=== PATIENT | female | born 1975 | race Caucasian/White ===

== ENCOUNTER 2016-09-25 08:52 | Inpatient (IN) | payer OTHER ==
[2016-09-25 09:37] VITALS: BMI 28.3
--- NOTE | 2016-09-25 09:43 | PDOC ---
History of Present Illness <Medardo De La Vega - Last Filed: 09/25/16 14:41> - General History Source: Patient Exam Limitations: No Limitations - History of Present Illness Initial Comments: 09/25/16 16:44 The patient is a 41 year old female with a significant past medical history of kidney stones who presents to the ED with complaints of abdominal pain for 2 days. The patient reports an onset of sharp constant epigastric pain with radiation to her lower back pain on Wednesday night. She reports worsening symptoms and developed vomiting, diarrhea, dysuria, and a subjective fever yesterday evening. She reports multiple episodes of vomiting productive of yellow sputum with slight traces of blood and yellow watery stool. The patient also notes slight shortness of breath secondary to her abdominal pain. She reports taking advil with slight relief of present symptoms. She states her symptoms does not feel similar to her history of kidney stones. Patient states her daughter has similar symptoms at home. Denies any recent changes in medication. Denies recent travel. Denies chest pain or palpitations. Denies frequency, urgency or hematuria. Denies hematochezia. Denies any other symptoms. Surgical hx: Gallbladder removal Social hx: The patient lives at home with family. 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 <Brandon Traylor - Last Filed: 09/25/16 16:45> - General Chief Complaint: Pain, Acute Stated Complaint: ABD PAIN, VOMITING Time Seen by Provider: 09/25/16 09:35 Past History - Past Medical History Disorders: Yes (KIDNEY STONES) - Surgical History Cholecystectomy: Yes - Psycho/Social/Smoking Cessation Hx Anxiety: No Suicidal Ideation: No Smoking Status: No Smoking History: Never smoked Have you smoked in the past 12 months: No Number of Cigarettes Smoked Daily: 0 Hx Alcohol Use: No Drug/Substance Use Hx: No Substance Use Type: None <Medardo De La Vega - Last Filed: 09/25/16 14:41> <Brandon Traylor - Last Filed: 09/25/16 16:45> - Past Medical History Allergies/Adverse Reactions: Allergies Allergy/AdvReac Type Severity Reaction Status Date / Time No Known Drug Allergies Allergy Verified 09/25/16 09:19 Home Medications: Ambulatory Orders NK [No Known Home Medication] 09/25/16 Review of Systems - Review of Systems Able to Perform ROS?: Yes Comments:: 09/25/16 16:44 CONSTITUTIONAL: + fever No reported: Diaphoresis, Generalized Weakness, Malaise, Loss of Appetite HEENT: No reported: Rhinorrhea, Nasal Congestion, Throat Pain, Throat Swelling, Difficulty Swallowing, Mouth Swelling, Ear Pain, Eye Pain, Visual Changes CARDIOVASCULAR: No reported: Chest Pain, Syncope, Palpitations, Irregular Heart Rate, Lightheadedness, Peripheral Edema RESPIRATORY: + slight shortness of breath No reported: Cough, SOB with Exertion, Orthopnea, Wheezing, Stridor, Hemoptysis GASTROINTESTINAL: + abdominal pain, nausea, vomiting, diarrhea No reported: Abdominal Distension,, Constipation, Melena, Hematochezia GENITOURINARY: + dysuria No reported: Frequency, Urgency, Hesitancy, Flank Pain, Genital Pain MUSCULOSKELETAL: No reported: Myalgia, Arthralgia, Joint Swelling, Back pain, Neck Pain SKIN: No reported: Rash, Itching, Pallor HEMEATOLOGIC/IMMUNOLOGIC: No reported: Easy Bleeding, Easy Bruising, Lymphadenopathy, Frequent infections ENDOCRINE: No reported: Unexplained Weight Gain, Unexplained Weight Loss, Heat Intolerance , Cold Intolerance NEUROLOGIC: No reported: Headache, Focal Weakness, Paresthesias, Vertigo, Lightheadedness, Unsteady Gait, Seizure, Mental Status Changes, Incontinence PSYCHIATRIC: No reported: Anxiety, Depression All Other Systems: Reviewed and Negative <Brandon Traylor - Last Filed: 09/25/16 16:45> *Physical Exam - Vital Signs Last Vital Signs Temp Pulse Resp BP Pulse Ox 98.5 F 74 16 106/62 99 09/25/16 09:19 09/25/16 09:19 09/25/16 09:19 09/25/16 09:19 09/25/16 09:19 <Medardo De La Vega - Last Filed: 09/25/16 14:41> - Vital Signs Last Vital Signs Temp Pulse Resp BP Pulse Ox 98.5 F 69 16 121/72 95 09/25/16 09:19 09/25/16 13:25 09/25/16 13:25 09/25/16 13:25 09/25/16 13:25 - Physical Exam Comments: 09/25/16 16:44 GENERAL: The patient is awake, alert, and fully oriented, Nontoxic - in no acute distress. HEAD: Normocephalic, atraumatic. EYES: extraocular movements intact, sclera anicteric, conjunctiva clear. ENT: Normal voice, Moist mucous membranes. NECK: Normal range of motion, supple LUNGS: Breath sounds equal, clear to auscultation bilaterally. No wheezes, no rhonchi, no rales. HEART: Regular rate and rhythm, without murmur, rub or gallop. ABDOMEN: + Diffuse tenderness in right lower quadrant as well as epigastric. Soft, normoactive bowel sounds. No guarding, no rebound.No CVA tenderness EXTREMITIES: Normal range of motion, no edema. No clubbing or cyanosis. No cords, erythema, or tenderness. NEUROLOGICAL: No facial assymetry, Normal speech, PSYCH: Normal mood, normal affect. SKIN: Warm, Dry, normal turgor, <Brandon Traylor - Last Filed: 09/25/16 16:45> Heart Score/ECG Review - ECG Impressions Comment:: 09/25/16 11:20 Twelve-lead EKG was performed and reviewed by me. There is normal sinus rhythm with a normal rate. Rate of 68 twi in lead III normal axis normal r wave progression <Medardo De La Vega - Last Filed: 09/25/16 14:41> ED Treatment Course - LABORATORY CBC & Chemistry Diagram: 09/25/16 10:10 09/25/16 10:18 <Medardo De La Vega - Last Filed: 09/25/16 14:41> - LABORATORY CBC & Chemistry Diagram: 09/25/16 10:10 09/25/16 10:18 - ADDITIONAL ORDERS Additional order review: Laboratory Results 09/25/16 09/25/16 09/25/16 11:29 11:29 10:18 INR Sodium 136 Potassium 3.8 Chloride 101 Carbon Dioxide 25 Anion Gap 10 BUN 10 Creatinine 0.7 D Creat Clearance w eGFR > 60 Random Glucose 120 H D Calcium 7.9 L Total Bilirubin 1.3 H D AST 248 H D ALT 194 H D Alkaline Phosphatase 87 Total Protein 6.8 Albumin 3.4 Lipase 738 H Urine Color Yellow Urine Appearance Clear Urine pH 6.0 Ur Specific [place] 1.009 Urine Protein Negative Urine Glucose (UA) Negative Urine Ketones Negative Urine Blood 2+ H Urine Nitrite Negative Urine Bilirubin Negative Urine Urobilinogen 2.0 e.u/dl H Ur Leukocyte Esterase Negative Urine RBC 6 Urine WBC 1 Ur Epithelial Cells Rare Urine Mucus Rare Urine HCG, Qual Negative 09/25/16 10:10 INR 1.12 Sodium Potassium Chloride Carbon Dioxide Anion Gap BUN Creatinine Creat Clearance w eGFR Random Glucose Calcium Total Bilirubin AST ALT Alkaline Phosphatase Total Protein Albumin Lipase Urine Color Urine Appearance Urine pH Ur Specific [place] Urine Protein Urine Glucose (UA) Urine Ketones Urine Blood Urine Nitrite Urine Bilirubin Urine Urobilinogen Ur Leukocyte Esterase Urine RBC Urine WBC Ur Epithelial Cells Urine Mucus Urine HCG, Qual 09/25/16 10:10 RBC 4.14 MCV 92.8 MCHC 34.1 RDW 14.3 MPV 9.2 Neutrophils % 93.3 H D Lymphocytes % 1.5 L D Monocytes % 4.9 Eosinophils % 0.0 D Basophils % 0.3 - RADIOLOGY Radiograph Interpretation: 09/25/16 14:02 US/LIVER US Impression: Common duct dilated to 7/6 mm. This could be related to the cholecystectomy but in light of the symptoms present one can consider MRCP. Otherwise normal right upper quadrant ultrasound post cholecystectomy. Clinical correlation advised. Reported by: Beto Garber - Medications Given in the ED: ED Medications Discontinued Medications Generic Name Dose Route Start Last Admin Trade Name Freq PRN Reason Stop Dose Admin Acetaminophen 650 mg 09/25/16 12:27 09/25/16 13:00 Tylenol - PO 09/25/16 12:28 650 mg ONCE ONE Administration Sodium Chloride 1,000 mls @ 1,000 mls/hr 09/25/16 09:44 09/25/16 10:16 Normal Saline - IV 09/25/16 10:43 1,000 mls/hr .Q1H ONE Administration Ondansetron HCl 4 mg 09/25/16 09:44 09/25/16 10:16 Zofran Injection IVPB 09/25/16 09:45 4 mg ONCE ONE Administration <Brandon Traylor - Last Filed: 09/25/16 16:45> Medical Decision Making - Medical Decision Making 09/25/16 09:54 41y F presents with n/v/d w diffuse abdominal pain x 3 days associated with subjective fevers, nbnb vomiting, nonmelantic stool -+ sick contacts via child, on exam the pt is well appearing, mild diffuse tenderness most in the RLQ and epigastrium suspect AGE consider possible appendicitis will ck labs, will treat supportively with fluids, zofran will reassess abdomen, if +tenderness, consider further imaging. A portion of this note was documented by scribe services under my direction. I have reviewed the details of the note, within reason, and agree with the documentation with the following case summary and management plan written by me 09/25/16 12:08 pts labs tnoed for elevated bilirubin and LFTs will obtain liver US 09/25/16 14:41 US shows idlated bile duct will admit for MRCP case dw PATIENT SV[facility] MGR Blanca - agreed with admission for further management under dr. Pak will page dr. Stevens Case discussed in detail with admitting physician including history, physical exam and ancillary studies. Admitting physician has assumed care for the patient, will follow all pending diagnostics and will complete the evaluation and treatment. <Medardo De La Vega - Last Filed: 09/25/16 14:41> - Medical Decision Making 09/25/16 15:[address] Stevens at 15:36 <Brandon Traylor - Last Filed: 09/25/16 16:45> *DC/Admit/Observation/Transfer - Discharge Dispostion Admit: Yes <Medardo De La Vega - Last Filed: 09/25/16 14:41> - Attestations Scribe Attestion: 09/25/16 16:44 Documentation prepared by Brandon Traylor, acting as biomedical repair technician for Medardo De La Vega MD <Brandon Traylor - Last Filed: 09/25/16 16:45> Diagnosis at time of Disposition: Transaminitis, Dilated bile duct - Discharge Dispostion Condition at time of disposition: Guarded
[2016-09-25] MEDS ORDERED: ONDANSETRON 4 MG/2 ML VIAL IVPB ONE (09:44)
[2016-09-25] MEDS ORDERED: SODIUM CHLORIDE 1,000 ML IV ONE (09:44)
[2016-09-25] MEDS ORDERED: ONDANSETRON 4 MG/2 ML VIAL ONE (10:14)
[2016-09-25 10:18] LABS: BASOPHIL 0.3 % (0-2.0); MCH 31.6 pg (25.7-33.7); MCHC 34.1 g/dl (32.0-36.0); MEAN CELL VOLUME 92.8 fl (80-96); MEAN PLT VOLUME 9.2 fl (7.5-11.1); NEUTROPHILS 93.3 % (42.8-82.8); PLATELET COUNT 182 K/MM3 (134-434); RDW 14.3 % (11.6-15.6); WHITE BLOOD COUNT 10.5 K/mm3 (4.0-10.0)
[2016-09-25 10:41] LABS: INR 1.12 (0.82-1.09); PROTHROMBIN TIME (PATIENT) 12.4 SEC (9.98-11.88)
[2016-09-25 11:00] LABS: ALBUMIN 3.4 g/dl (3.4-5.0); ALK PHOS 87 U/L (45-117); ANION GAP 10 (8-16); BILIRUBIN,TOTAL 1.3 mg/dL (0.2-1.0); CALCIUM 7.9 mg/dL (8.5-10.1); CO2 25 mmol/L (21-32); CREATININE 0.7 mg/dL (0.55-1.02); GLUCOSE,RANDOM 120 mg/dL (74-106); SGOT/AST 248 U/L (15-37); SGPT/ALT 194 U/L (12-78); TOT PROT 6.8 g/dl (6.4-8.2)
[2016-09-25 11:48] LABS: URINE APPEARANCE CLEAR; URINE BILIRUBIN NEGATIVE (NEGATIVE); URINE COLOR YELLOW; URINE GLUCOSE (UA) NEGATIVE (NEGATIVE); URINE KETONE NEGATIVE (NEGATIVE); URINE LEUK ESTERASE NEGATIVE (NEGATIVE); URINE NITRITE NEGATIVE (NEGATIVE); URINE PROTEIN NEGATIVE (NEGATIVE); URINE UROBILINOGEN 2.0 E.U/dl E.U./dl (0.2-1.0)
[2016-09-25 11:49] LABS: URINE BLOOD 2+ (NEGATIVE)
[2016-09-25 11:51] LABS: URINE MUCUS RARE; URINE RBC 6 /hpf (0-3); URINE WBC 1 /hpf (3-5)
[2016-09-25] MEDS ORDERED: ACETAMINOPHEN 325 MG TABLET (FP) PO ONE (12:27)
[2016-09-25] MEDS ORDERED: ACETAMINOPHEN 325 MG TABLET (FP) ONE (12:27)
[2016-09-25] MEDS ORDERED: morphine CARPU-JECT 2 MG/1 ML DISP.SYRIN IVPUSH ONE (14:42)
[2016-09-25] MEDS ORDERED: morphine CARPU-JECT 2 MG/1 ML DISP.SYRIN ONE (14:53)
[2016-09-25] MEDS ORDERED: ONDANSETRON 4 MG/2 ML VIAL IVPB PRN (14:59)
[2016-09-25] MEDS ORDERED: morphine CARPU-JECT 2 MG/1 ML DISP.SYRIN IVPUSH PRN (14:59)
--- NOTE | 2016-09-25 15:02 | HP ---
CHIEF COMPLAINT: Abdominal pain PCP: Dr. Meadows HISTORY OF PRESENT ILLNESS: This is a 41 year old female with a history of nephrolithiasis and cholecystectomy (2014) who presents complaining of abdominal pain and n/v/d since Wednesday. She reports subjective fevers and chills. 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 Smoking: None Alcohol: None Drugs: None Family History: Non-contributory Allergies No Known Drug Allergies Allergy (Verified 09/25/16 09:19) HOME MEDICATIONS: Home Medications Medication Instructions Recorded NK [No Known Home Medication] 09/25/16 REVIEW OF SYSTEMS CONSTITUTIONAL: Fevers/chills Absent: fdiaphoresis, generalized weakness, malaise, weight change HEENT: Absent: rhinorrhea, nasal congestion, throat pain, throat swelling, difficulty swallowing, mouth swelling, ear pain, eye pain, visual changes CARDIOVASCULAR: Absent: chest pain, syncope, palpitations, irregular heart rate, lightheadedness , peripheral edema RESPIRATORY: Absent: cough, shortness of breath, dyspnea with exertion, orthopnea, wheezing, stridor, hemoptysis GASTROINTESTINAL: Abdominal pain, n/v/d Absent:melena, hematochezia GENITOURINARY: Absent: dysuria, frequency, urgency, hesitancy, hematuria, flank pain, genital pain MUSCULOSKELETAL: Absent: myalgia, arthralgia, joint swelling, back pain, neck pain SKIN: Absent: rash, itching, pallor HEMATOLOGIC/IMMUNOLOGIC: Absent: easy bleeding, easy bruising, lymphadenopathy, frequent infections ENDOCRINE: Absent: unexplained weight gain, unexplained weight loss, heat intolerance, cold intolerance NEUROLOGIC: Absent: headache, focal weakness or paresthesias, dizziness, unsteady gait, seizure, mental status changes, bladder or bowel incontinence PSYCHIATRIC: Absent: anxiety, depression, suicidal or homicidal ideation, hallucinations. PHYSICAL EXAMINATION Vital Signs - 24 hr 09/25/16 09/25/16 09:19 13:25 Temperature 98.5 F Pulse Rate 74 Pulse Rate [ 69 Apical] Respiratory 16 16 Rate Blood Pressure 106/62 Blood Pressure 121/72 [Left Arm] O2 Sat by Pulse 99 95 Oximetry (%) GENERAL: Awake, alert, and fully oriented, in no acute distress. HEAD: Normal with no signs of trauma. EYES: Pupils equal, round and reactive to light, extraocular movements intact, sclera anicteric, conjunctiva clear. No lid lag. EARS, NOSE, THROAT: Ears normal, nares patent, oropharynx clear without exudates. Moist mucous membranes. NECK: Normal range of motion, supple without lymphadenopathy, JVD, or masses. LUNGS: Breath sounds equal, clear to auscultation bilaterally. No wheezes, and no crackles. No accessory muscle use. HEART: Regular rate and rhythm, normal S1 and S2 without murmur, rub or gallop. ABDOMEN: Soft, tenderness to deep palpation in epigastrium, not distended, normoactive bowel sounds, no guarding, no rebound, no masses. No hepatomegaly or splenomegaly. MUSCULOSKELETAL: Normal range of motion at all joints. No bony deformities or tenderness. No CVA tenderness. UPPER EXTREMITIES: 2+ pulses, warm, well-perfused. No cyanosis. No clubbing. No peripheral edema. LOWER EXTREMITIES: 2+ pulses, warm, well-perfused. No calf tenderness. No peripheral edema. NEUROLOGICAL: Cranial nerves II-XII intact. Normal speech. Normal gait. PSYCHIATRIC: Cooperative. Good eye contact. Appropriate mood and affect. SKIN: Warm, dry, normal turgor, no rashes or lesions noted, normal capillary refill. Laboratory Results - last 24 hr 09/25/16 09/25/16 09/25/16 10:10 10:10 10:18 WBC 10.5 H RBC 4.14 Hgb 13.1 Hct 38.4 MCV 92.8 MCHC 34.1 RDW 14.3 Plt Count 182 MPV 9.2 Neutrophils % 93.3 H D Lymphocytes % 1.5 L D Monocytes % 4.9 Eosinophils % 0.0 D Basophils % 0.3 INR 1.12 Sodium 136 Potassium 3.8 Chloride 101 Carbon Dioxide 25 Anion Gap 10 BUN 10 Creatinine 0.7 D Creat Clearance w eGFR > 60 Random Glucose 120 H D Calcium 7.9 L Total Bilirubin 1.3 H D AST 248 H D ALT 194 H D Alkaline Phosphatase 87 Total Protein 6.8 Albumin 3.4 Lipase 738 H Urine Color Urine Appearance Urine pH Ur Specific [place] Urine Protein Urine Glucose (UA) Urine Ketones Urine Blood Urine Nitrite Urine Bilirubin Urine Urobilinogen Ur Leukocyte Esterase Urine RBC Urine WBC Ur Epithelial Cells Urine Mucus Urine HCG, Qual 09/25/16 09/25/16 11:29 11:29 WBC RBC Hgb Hct MCV MCHC RDW Plt Count MPV Neutrophils % Lymphocytes % Monocytes % Eosinophils % Basophils % INR Sodium Potassium Chloride Carbon Dioxide Anion Gap BUN Creatinine Creat Clearance w eGFR Random Glucose Calcium Total Bilirubin AST ALT Alkaline Phosphatase Total Protein Albumin Lipase Urine Color Yellow Urine Appearance Clear Urine pH 6.0 Ur Specific [place] 1.009 Urine Protein Negative Urine Glucose (UA) Negative Urine Ketones Negative Urine Blood 2+ H Urine Nitrite Negative Urine Bilirubin Negative Urine Urobilinogen 2.0 e.u/dl H Ur Leukocyte Esterase Negative Urine RBC 6 Urine WBC 1 Ur Epithelial Cells Rare Urine Mucus Rare Urine HCG, Qual Negative ASSESSMENT/PLAN: 41 year old female with abdominal pain and n/v/d. Noted to have CBD dilation on u/s; this could be related to post-cholecystectomy status, or could signal choledocholithiasis. Problem List - Problem (1) Abdominal pain Assessment/Plan: -MRCP to evaluate CBD -Trend WBC, LFTs, lipase -NPO -IVF -Morphine prn pain and Zofran prn nausea -Patient's GI consulted Code(s): R10.9 - UNSPECIFIED ABDOMINAL PAIN (2) DVT prophylaxis Assessment/Plan: -Moderate risk -Early ambulation -[facility] Code(s): [id number] - Visit type - Emergency Visit Emergency Visit: Yes ED Registration Date: 09/25/16 Care time: The patient presented to the Emergency Department on the above date and was hospitalized for further evaluation of their emergent condition. - New Patient This patient is new to me today: Yes Date on this admission: 09/25/16 - Critical Care Critical Care patient: No
[2016-09-25] MEDS: SODIUM CHLORIDE 1,000 ML IV SCH ×2 (15:31→17:50)
--- NOTE | 2016-09-25 19:22 | CON.GI ---
Consult Consult Specialty:: GASTROENTEROLOGY Reason for Consultation:: PANCREATITIS - History of Present Illness Chief Complaint: ABDOMINAL PAIN NAUSEA VOMITING AND POSSIBLE FEVER History of Present Illness: 41 YEAR OLD FEMALE WHO HAD CHOLECYSTECTOMY IN 2014 ADMITTED WITH ABDOMINAL PAIN, NAUSEA, VOMITING AND ELEVATED LIPASE AND TRANSAMINASES. SHE STATES SHE [place] [facility] [place] HAD UPPER ABDOMINAL PAIN WITH NAUSEA. THE DAYS WENT ON PAIN INCREASED, SHE STARTED TO VOMIT, AND FELT SHE HAD CHILLS AND FEVER. SHE DENIES ANY MELENA OR BLOODY VOMIT. SHE DENIES COLOR CHANGE OF HER EYES, SKIN, URINE OR STOOL. THE PAIN WAS MAINLY EPIGASTRIC AND SOME TOWARD THE RUQ. SHE HAS NOT HAD ANY RECENT OR PAST ABDOMINAL PAIN AFTER HER CHOLECYSTECTOMY UNTIL WEDNESDAY. SHE DOES NOT DRINK ALCOHOL SONOGRAM IN ER SHOWED A DILATED CBD 7.9MM AND ELEVATED TRANSAMINASES AND A LIPASE OF 739. SHE IS GOING DOWN FOR MRI NOW. I HAVE ORDERED ANTIBIOTICS AND BLOOD CULTURES PRIOR TO ANTIBIOTIC ADMINISTRATION. 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: No: Alzheimer's, CVA, Dementia, Migraine, Multiple Sclerosis, Peripheral Neuropathy, Parkinson's, Seizure, Syncope, TIA, Vertigo, Other Cardio/Vascular: No: AFIB, Aneurysm, Aortic Insufficiency, Aortic Stenosis, CAD , CHF, Deep Vein Thrombosis, HTN, Hyperlipdemia, [place], Mitral Insufficiency, Mitral Stenosis, Murmur, Pulmonary Hypertension, Other Pulmonary: No: Asthma, Bronchitis, Cancer, COPD, O2 Dependent, Pneumonia, Previously Intubated, Pulmonary Embolus, Pulmonary Fibrosis, Sleep Apnea, Other Hepatobiliary: Yes: Cholelithiasis, Cholecystitis, Other (S/P MARYJANE) Renal/: No: Renal Failure, Renal Inusuff, BPH, Cancer, Hematuria, Hemodialysis , Neurogenic Bladder, Renal Calculi, UTI, Other Reproductive: No: Ectopic , Endometriosis, Fibroids, PID, Polycystic Ovary Syndrome, Postmenopausal, Other ...LMP: 09/14/16 ...: No Heme/Onc: No: Anemia, B12 Deficiency, Bleeding Disorder, Cancer, Current Chemotherapy, Current Radiation Therapy, Hemochromatosis, Hypercoaguable State, Myeloproliferative Synd, Sickle Cell Disease, Sickle Cell Trait, Thrombocytopenia, Other Infectious Disease: No: AIDS, C-Diff, Herpes Zoster, HIV, MRSA, STD's, Tuberculosis, VREF, Other Psych: No: Addictions, Anxiety, Bipolar, Depression, Panic, Psychosis, Schizophrenia, Other Musculoskeletal: No: Bursitis, Chronic low back pain, Hemiparesis, Hemiplegia, Osteoarthritis, Paraplegia, Other Rheumatology: No: Fibromyalgia, Gout, Lupus, Rheumatoid Arthritis, Sarcoidosis, Vasculitis, Other Endocrine: No: [place]'s Disease, [place]'s Disease, Diabetes Insipidus, Diabetes Mellitus, Hyperparathyroidism, Hyperthyroidism, Hypothyroidism, Osteopenia, SIADH, Other Dermatology: No: Basal Cell, Cellulitis, Eczema, Melanoma, Psoriasis, Squamous Cell, Other - Past Surgical History Past Surgical History: Yes: Cholecystectomy - Alcohol/Substance Use Hx Alcohol Use: No - Smoking History Smoking history: Never smoked Have you smoked in the past 12 months: No Aproximately how many cigarettes per day: 0 Home Medications - Allergies Allergies/Adverse Reactions: Allergies Allergy/AdvReac Type Severity Reaction Status Date / Time No Known Drug Allergies Allergy Verified 09/25/16 09:19 - Home Medications Home Medications: Ambulatory Orders NK [No Known Home Medication] 09/25/16 Family Disease History - Family Disease History Family History: Unremarkable Review of Systems - Review of Systems Constitutional: reports: Chills, Fever Eyes: denies: No Symptoms, Blind Spots, Blurred Vision, Double Vision, Eye Pain , Floaters, Photophobia, Recent Change in Vision, Other HENT: denies: No Symptoms, Difficult Swallowing, Ear Discharge, Ear Pain, Epistaxis, Gingival Bleeding, Hearing Loss, Mouth Swelling, Nasal Congestion, Ocular Prosthesis, Throat Pain, Toothache, Ringing in Ears, Other Neck: denies: No Symptoms, Decreased ROM, Lumps, Pain on Movement, Stiffness, Swollen Glands, Tenderness, Other Cardiovascular: denies: No Symptoms, Chest Pain, Edema, Palpitations, Shortness of Breath, Other Respiratory: denies: No Symptoms, Cough, Exercise Intolerance, Hemoptysis, Orthopnea, PND, Snoring, SOB, SOB on Exertion, Wheezing, Other Gastrointestinal: reports: Abdominal Pain, Nausea, Vomiting Genitourinary: reports: No Symptoms Breasts: reports: No Symptoms Reported Musculoskeletal: reports: No Symptoms Integumentary: reports: No Symptoms Neurological: reports: No Symptoms Endocrine: reports: No Symptoms Hematology/Lymphatic: reports: No Symptoms Psychiatric: reports: No Symptoms Physical Exam-GI Vital Signs: Vital Signs Temperature 98.9 F 09/25/16 18:51 Pulse Rate 70 09/25/16 18:51 Respiratory Rate 20 09/25/16 18:51 Blood Pressure 104/60 09/25/16 18:51 O2 Sat by Pulse Oximetry (%) 98 09/25/16 18:51 Constitutional: Yes: Well Nourished, Calm Eyes: Yes: Conjunctiva Clear HENT: Yes: Normocephalic Neck: Yes: Supple Cardiovascular: Yes: Regular Rate and Rhythm Respiratory: Yes: Regular Gastrointestinal Inspection: Yes: Distention ...Auscultate: Yes: Normoactive Bowel Sounds ...Palpate: Yes: Tenderness, Epigastium (NO GUARDING OR REBOUND) Musculoskeletal: Yes: WNL Extremities: Yes: WNL Neurological: Yes: Alert, Oriented Labs: INR, PTT INR 1.12 (0.82-1.09) 09/25/16 10:10 Laboratory Tests 09/25/16 09/25/16 09/25/16 10:10 10:10 10:18 WBC 10.5 H RBC 4.14 Hgb 13.1 Hct 38.4 MCV 92.8 MCHC 34.1 RDW 14.3 Plt Count 182 MPV 9.2 Neutrophils % 93.3 H D Lymphocytes % 1.5 L D Monocytes % 4.9 Eosinophils % 0.0 D Basophils % 0.3 INR 1.12 Sodium 136 Potassium 3.8 Chloride 101 Carbon Dioxide 25 Anion Gap 10 BUN 10 Creatinine 0.7 D Creat Clearance w eGFR > 60 Random Glucose 120 H D Calcium 7.9 L Total Bilirubin 1.3 H D AST 248 H D ALT 194 H D Alkaline Phosphatase 87 Total Protein 6.8 Albumin 3.4 Lipase 738 H Urine Blood Urine Nitrite Urine Urobilinogen Urine HCG, Qual 09/25/16 09/25/16 11:29 11:29 WBC RBC Hgb Hct MCV MCHC RDW Plt Count MPV Neutrophils % Lymphocytes % Monocytes % Eosinophils % Basophils % INR Sodium Potassium Chloride Carbon Dioxide Anion Gap BUN Creatinine Creat Clearance w eGFR Random Glucose Calcium Total Bilirubin AST ALT Alkaline Phosphatase Total Protein Albumin Lipase Urine Blood 2+ H Urine Nitrite Negative Urine Urobilinogen 2.0 e.u/dl H Urine HCG, Qual Negative Imaging - Results Ultrasound: Image Reviewed MRI: Pending Problem List - Problems (1) Pancreatitis Assessment/Plan: R/O PASSED STONE AND RETAINED CBD STONE, CK STATUS OF PANCREATIC HEAD AND BILE DUCTS BLOOD CULTURES AND IV LEVAQUIN AND FLAGYL STAT AWAIT MRI/MRCP TREND LIPASE AND LFTs WITH CBCD NPO FOR NOW INCREASE IVF/ANALGESIA DR BASS WILL BE COVERING FOR ME UNTIL WEDNESDAY Code(s): K85.90 - ACUTE PANCREATITIS WITHOUT NECROSIS OR INFECTION, UNSP (2) Dilated bile duct Code(s): K83.8 - OTHER SPECIFIED DISEASES OF BILIARY TRACT (3) Transaminitis Code(s): R74.0 - NONSPEC ELEV OF LEVELS OF TRANSAMNS & LACTIC ACID DEHYDRGNSE (4) Abdominal pain Code(s): R10.9 - UNSPECIFIED ABDOMINAL PAIN
[2016-09-25] MEDS: LEVOFLOXACIN 500 MG IVPB 100 ML IVPB SCH (19:55)
[2016-09-25] MEDS ORDERED: LACTATED RINGERS SOLUTION 1,000 ML IV SCH (20:00)
[2016-09-25] MEDS: METRONIDAZOLE 500 MG PREMIXED 100 ML IVPB SCH (21:14)
[2016-09-26] MEDS: METRONIDAZOLE 500 MG PREMIXED 100 ML IVPB SCH ×3 (03:00→17:18)
[2016-09-26] MEDS ORDERED: LACTATED RINGERS SOLUTION 1,000 ML IV SCH (04:00)
[2016-09-26 08:07] LABS: BASOPHIL 0.8 % (0-2.0); EOSINOPHIL 0.6 % (0-4.5); MCH 31.5 pg (25.7-33.7); MEAN CELL VOLUME 92.5 fl (80-96); MEAN PLT VOLUME 9.4 fl (7.5-11.1); NEUTROPHILS 70.3 % (42.8-82.8); PLATELET COUNT 160 K/MM3 (134-434); RDW 14.1 % (11.6-15.6); WHITE BLOOD COUNT 4.7 K/mm3 (4.0-10.0)
--- NOTE | 2016-09-26 08:37 | PN ---
Physical Exam: SUBJECTIVE: Patient seen and examined. She has no acute complaint. She denies nausea, vomiting. OBJECTIVE: Vital Signs Period Temp Pulse Resp BP Sys/Cueto Pulse Ox Last 24 Hr 98.3 F-98.9 F 70-72 16-20 102-110/57-68 98-100 PE Neuro: alert, awake, cn 2-12intact Pulm: CTAB CV: s1 s2 rrr no mrg Abd: mild epigastric tenderness to palpation, soft, non distended Ext: warm, no le edema CBCD WBC 4.7 K/mm3 (4.0-10.0) D 09/26/16 06:20 RBC 3.68 M/mm3 (3.60-5.2) 09/26/16 06:20 Hgb 11.6 GM/dL (10.7-15.3) D 09/26/16 06:20 Hct 34.0 % (32.4-45.2) 09/26/16 06:20 MCV 92.5 fl (80-96) 09/26/16 06:20 MCHC 34.0 g/dl (32.0-36.0) 09/26/16 06:20 RDW 14.1 % (11.6-15.6) 09/26/16 06:20 Plt Count 160 K/MM3 (134-434) 09/26/16 06:20 MPV 9.4 fl (7.5-11.1) 09/26/16 06:20 CMP Sodium 139 mmol/L (136-145) 09/26/16 06:20 Potassium 3.4 mmol/L (3.5-5.1) L 09/26/16 06:20 Chloride 105 mmol/L (98-107) 09/26/16 06:20 Carbon Dioxide 25 mmol/L (21-32) 09/26/16 06:20 Anion Gap 9 (8-16) 09/26/16 06:20 BUN 8 mg/dL (7-18) 09/26/16 06:20 Creatinine 0.5 mg/dL (0.55-1.02) L D 09/26/16 06:20 Creat Clearance w eGFR > 60 (>60) 09/26/16 06:20 Calcium 7.7 mg/dL (8.5-10.1) L 09/26/16 06:20 Total Bilirubin 0.5 mg/dL (0.2-1.0) D 09/26/16 06:20 AST 133 U/L (15-37) H D 09/26/16 06:20 ALT 240 U/L (12-78) H D 09/26/16 06:20 Alkaline Phosphatase 103 U/L (45-117) 09/26/16 06:20 Total Protein 5.3 g/dl (6.4-8.2) L D 09/26/16 06:20 Albumin 2.6 g/dl (3.4-5.0) L D 09/26/16 06:20 09/26/16 06:20 Lipase 168 Active Medications Generic Name Dose Route Start Last Admin Trade Name Freq PRN Reason Stop Dose Admin Levofloxacin 100 mls @ 100 mls/hr 09/25/16 19:15 09/25/16 19:55 Levaquin 500 Mg Premixed Ivpb - IVPB 100 mls/hr DAILY GALLO Administration Metronidazole 100 mls @ 100 mls/hr 09/25/16 19:15 09/26/16 03:00 Flagyl 500mg Premixed Ivpb - IVPB 100 mls/hr Q8H-IV GALLO Administration Lactated Ringer's 1,000 mls @ 150 mls/hr 09/26/16 04:00 09/26/16 04:58 Lactated Ringers Solution IV 150 mls/hr ASDIR GALLO Administration Morphine Sulfate 2 mg 09/25/16 14:59 09/25/16 21:12 Morphine Injection - IVPUSH 2 mg Q4H PRN Administration PAIN Ondansetron HCl 4 mg 09/25/16 14:59 09/25/16 21:19 Zofran Injection IVPB 4 mg Q6H PRN Administration NAUSEA Assessment: 41 year old female admitted with abdominal pain and n/v/d Noted to have CBD dilation on u/s. Plan: 1. Abdominal pain - Post-cholecystectomy etiology vs choledocholithiasis - MRCP done; report pending - AST uptrending - Continue Levaquin (day 2) - Continue Flagyl (day 1) - Blood Cultures pending - Advance diet per GI 2. Pancreatitis - Resolved - Decrease LR 100cc/hr 3. Hypokalemia - Replete [id number] IV Visit type - Emergency Visit Emergency Visit: Yes ED Registration Date: 09/25/16 Care time: The patient presented to the Emergency Department on the above date and was hospitalized for further evaluation of their emergent condition. - New Patient This patient is new to me today: Yes Date on this admission: 09/26/16 - Critical Care Critical Care patient: No
[2016-09-26 08:39] LABS: ALBUMIN 2.6 g/dl (3.4-5.0); ALK PHOS 103 U/L (45-117); ANION GAP 9 (8-16); BILIRUBIN,TOTAL 0.5 mg/dL (0.2-1.0); CALCIUM 7.7 mg/dL (8.5-10.1); CO2 25 mmol/L (21-32); COCKROFT - GAULT 178.4745; CREATININE 0.5 mg/dL (0.55-1.02); GLUCOSE,RANDOM 74 mg/dL (74-106); SGOT/AST 133 U/L (15-37); SGPT/ALT 240 U/L (12-78); TOT PROT 5.3 g/dl (6.4-8.2)
[2016-09-26] MEDS: LACTATED RINGERS SOLUTION 1,000 ML IV SCH ×2 (09:29→21:42)
[2016-09-26] MEDS: LEVOFLOXACIN 500 MG IVPB 100 ML IVPB SCH (09:29)
[2016-09-26] MEDS ORDERED: KCL 10 MEQ IVPB 100 ML IVPB SCH (09:30)
--- NOTE | 2016-09-26 14:55 | PN ---
GI Progress Note Subjective: GI Note ( covering Dr Cortez) Pain free today. Hungry. MRCP revaled no CBD stones or major pancreatic inflammation. - Objective Vital Signs: Vital Signs Temperature 98.2 F 09/26/16 13:56 Pulse Rate 67 09/26/16 13:56 Respiratory Rate 17 09/26/16 13:56 Blood Pressure 115/54 09/26/16 08:00 O2 Sat by Pulse Oximetry (%) 98 09/26/16 08:00 Constitutional: No Distress Gastrointestinal Inspection: Yes: Scars (healed lap choly incisions) ...Auscultate: Yes: Normoactive Bowel Sounds ...Palpate: Yes: Soft, Other (nontender) Labs: CBC, BMP 09/26/16 06:20 09/26/16 06:20 INR, PTT INR 1.12 (0.82-1.09) 09/25/16 10:10 Laboratory Tests 09/26/16 09/26/16 06:20 06:20 WBC 4.7 D Total Bilirubin 0.5 D AST 133 H D ALT 240 H D Alkaline Phosphatase 103 Lipase 168 Assessment/Plan Rapidly resolving pancreatitis suggests a passed stone or sludge. Will start clear liquids. Will give lactated ringers.
--- NOTE | 2016-09-26 16:27 | EKG ---
Test Reason : Blood Pressure : / mmHG Vent. Rate : 068 BPM Atrial Rate : 068 BPM P-R Int : 162 ms QRS Dur : 082 ms QT Int : 382 ms P-R-T Axes : 051 016 012 degrees QTc Int : 406 ms NORMAL SINUS RHYTHM CANNOT RULE OUT ANTERIOR INFARCT , AGE UNDETERMINED ABNORMAL ECG WHEN COMPARED WITH ECG OF 28-MAY-2014 15:22, NONSPECIFIC T WAVE ABNORMALITY NOW EVIDENT IN ANTERIOR LEADS Confirmed by RUBEN ROCK, ALEXEI ([id number]) on 09/26/2016 4:27:43 PM Referred By: Confirmed By:ALEXEI MIRANDA MD
[2016-09-27] MEDS: METRONIDAZOLE 500 MG PREMIXED 100 ML IVPB SCH ×2 (01:51→10:54)
[2016-09-27] MEDS: LEVOFLOXACIN 500 MG IVPB 100 ML IVPB SCH (09:08)
[2016-09-27] MEDS: LACTATED RINGERS SOLUTION 1,000 ML IV SCH (09:08)
[2016-09-27 10:24] LABS: BASOPHIL 0.8 % (0-2.0); EOSINOPHIL 1.3 % (0-4.5); MCH 31.4 pg (25.7-33.7); MCHC 34.2 g/dl (32.0-36.0); MEAN CELL VOLUME 91.7 fl (80-96); MEAN PLT VOLUME 9.1 fl (7.5-11.1); NEUTROPHILS 58.5 % (42.8-82.8); PLATELET COUNT 190 K/MM3 (134-434); WHITE BLOOD COUNT 4.2 K/mm3 (4.0-10.0)
--- NOTE | 2016-09-27 11:11 | PN ---
GI Progress Note Subjective: GI NOte ( covering Dr Cortez) : Tolerating liquids. Has some diarrhea. Has only mild residual RUQ and back pain. Chemistries are still pending. - Objective Vital Signs: Vital Signs Temperature 97.8 F 09/27/16 06:00 Pulse Rate 76 09/27/16 06:00 Respiratory Rate 16 09/27/16 06:00 Blood Pressure 121/70 09/27/16 06:00 O2 Sat by Pulse Oximetry (%) 98 09/26/16 22:00 Constitutional: Calm Gastrointestinal Inspection: Yes: Distention ...Auscultate: Yes: Normoactive Bowel Sounds ...Palpate: Yes: Soft, Other (nontender) Labs: CBC, BMP 09/27/16 10:10 INR, PTT INR 1.12 (0.82-1.09) 09/25/16 10:10 Assessment/Plan Resolving pancreatitis most likely due to a passed stone or sludge. Will advance diet.
--- NOTE | 2016-09-27 11:13 | DS ---
Physical Exam: SUBJECTIVE: Patient seen and examined. She is tolerating diet, no nausea, vomiting, residual mild epigastric and RUQ pain. She is OOB to chair OBJECTIVE: Vital Signs Period Temp Pulse Resp BP Sys/Cueto Pulse Ox Last 24 Hr 97.8 F-98.9 F 67-76 16-19 103-121/52-70 98 PE Neuro: alert, awake, cn 2-12intact Pulm: CTAB CV: s1 s2 rrr no mrg Abd: mild RUQ tenderness Ext: warm, no le edema Laboratory Results - last 24 hr 09/27/16 10:10 WBC 4.2 RBC 4.36 Hgb 13.7 D Hct 39.9 D MCV 91.7 MCHC 34.2 RDW 14.0 Plt Count 190 MPV 9.1 Neutrophils % 58.5 Lymphocytes % 28.7 D Monocytes % 10.7 H Eosinophils % 1.3 D Basophils % 0.8 09/27/16 10:10 Sodium 141 Potassium 3.5 Chloride 106 Carbon Dioxide 25 Anion Gap 10 BUN 5 L D Creatinine 0.5 L Creat Clearance w eGFR > 60 Random Glucose 85 Calcium 7.9 L Total Bilirubin 0.5 AST 56 H D ALT 194 H Alkaline Phosphatase 105 Total Protein 6.7 D Albumin 3.3 L D HOSPITAL COURSE: Date of Admission:09/25/16 Date of Discharge: 09/27/16 Minutes to complete discharge: 35 Discharge Summary Reason For Visit: ELEVATED TRANSAMINASE MEASUREMENT Current Active Problems DVT prophylaxis (Acute) Dilated bile duct (Acute) Pancreatitis (Acute) Transaminitis (Acute) Hospital Course: Initial Hospital Course: Briefly, this 41 year old female with a history of nephrolithiasis and cholecystectomy (2014) presented to the ED with abdominal pain and n/v/d since Wednesday. Subsequent Hospital Course/Progress Note/Discharge Summary by a/p: Assessment: 41 year old female admitted with abdominal pain and n/v/d Noted to have CBD dilation on u/s. Plan: 1. Pancreatitis - Likely due to passed stone or sludge - MRCP revealed no CBD stones or major pancreatic inflammation - Lipase wnl - Tolerating diet - Stop flagyl no ductal dilation - Continue levaquin 5 days total - LFT's down trended - d/w GI 2. Hypokalemia - Resolved Dispo: - Home with po abx and pcp follow up Condition: Stable - Instructions Diet, Activity, Other Instructions: Please return to the ED for any new, persistent, or worsening symptoms. Follow up with your PCP in 1 week Take antibiotics as directed and until completed For any GI symptoms Follow up at [facility] GI clinic Referrals: Shellie Cisneros MD [Primary Care Provider] - Disposition: HOME - Home Medications Comprehensive Discharge Medication List: Ambulatory Orders Levofloxacin [Levaquin -] 500 mg PO DAILY #2 tablet 09/27/16 This patient is new to me today: No Emergency Visit: Yes ED Registration Date: 09/25/16 Care time: The patient presented to the Emergency Department on the above date and was hospitalized for further evaluation of their emergent condition. Critical Care patient: No - Discharge Referral Referred to [facility] No
[2016-09-27 11:19] LABS: ALBUMIN 3.3 g/dl (3.4-5.0); ALK PHOS 105 U/L (45-117); ANION GAP 10 (8-16); BILIRUBIN,TOTAL 0.5 mg/dL (0.2-1.0); CALCIUM 7.9 mg/dL (8.5-10.1); CO2 25 mmol/L (21-32); COCKROFT - GAULT 178.4745; CREATININE 0.5 mg/dL (0.55-1.02); GLUCOSE,RANDOM 85 mg/dL (74-106); SGOT/AST 56 U/L (15-37); SGPT/ALT 194 U/L (12-78); TOT PROT 6.7 g/dl (6.4-8.2)
[2016-09-27 12:42] VITALS: BP 114/64
[2016-09-27 14:25] VITALS: PULSE 70; TEMP 97.9
[2016-09-29 00:06] LABS: HEP B SURFACE AB Non Reactive (.)
== END 2016-09-27 19:04 | disposition home or self-care (01) | DRG 282 ==
LOC: JER 08:52 → JERBED 14:42 → J6S 17:41
PROVIDERS: ADMIT Internal Medicine; ATTEND Nurse Practitioner Acute Care
DX: K85.90 Acute pancreatitis without necrosis or infection, unspecified (principal); E87.6 Hypokalemia; K83.8 Other specified diseases of biliary tract; R74.0 Nonspecific elevation of levels of transaminase and lactic acid dehydrogenase [LDH]
CPT/HCPCS: 36415; 74181-TC; 76705-TC; 80053; 81003; 81015; 83690; 84703; 85025; 85610; 86704; 86706; 86708; 87040; 87340; 93005; 93010; 99284-25

== ENCOUNTER 2017-11-12 14:27 | Emergency (ER) | payer OTHER ==
--- NOTE | 2017-11-12 14:56 | PDOC ---
History of Present Illness - General Chief Complaint: Headache Stated Complaint: DIZZY Time Seen by Provider: 11/12/17 14:55 - History of Present Illness Initial Comments: 11/12/17 15:12 The patient is a 42 year old female with a history of hypothyroidism who presents for evaluation of headache. The patient reports a 4 day history of gradual onset throbbing headache and associated photophobia. She noted gradual worsening symptoms including nausea today prompting her presentation to the ED for further evaluation. She notes that she does not normally get headaches and tried ibuprofen for pain management today with no improvement in her symptoms. She otherwise denies fevers, chills, SOB, chest pain, abdominal pain, vomiting, or changes with urination or bowel movements. Past History - Past Medical History Allergies/Adverse Reactions: Allergies Allergy/AdvReac Type Severity Reaction Status Date / Time No Known Drug Allergies Allergy Verified 11/12/17 14:33 Home Medications: Ambulatory Orders NK [No Known Home Medication] 11/12/17 COPD: No Disorders: Yes (KIDNEY STONES) - Surgical History Cholecystectomy: Yes - Suicide/Smoking/Psychosocial Hx Smoking Status: No Smoking History: Never smoked Have you smoked in the past 12 months: No Number of Cigarettes Smoked Daily: 0 Hx Alcohol Use: No Drug/Substance Use Hx: No Substance Use Type: None Hx Substance Use Treatment: No Review of Systems - Review of Systems Comments:: 11/12/17 15:14 Constitutional: Fatigue. No fevers, chills, malaise HEENT: No Rhinorrhea, nasal congestion, visual changes Cardiovascular: No chest pain, syncope, palpitations, lightheadedness Respiratory: No Cough, SOB, Hemoptysis, Gastrointestinal: Nausea. No Abdominal pain, Vomiting, Constipation, Diarrhea, Melena Genitourinary: No Dysuria, Frequency, Urgency, Hesitancy, Hematuria, Flank pain Musculoskeletal: No Myalgia, arthralgia Skin: No rashes, itching, bruising, pallor Neurologic: Headache, Dizziness. No Numbness, Weakness, or Tingling Psychiatric: No Hallucinations. No SI or HI *Physical Exam - Vital Signs Last Vital Signs Temp Pulse Resp BP Pulse Ox 98.0 F 63 16 105/69 99 11/12/17 14:34 11/12/17 14:34 11/12/17 14:34 11/12/17 14:34 11/12/17 14:34 - Physical Exam Comments: 11/12/17 15:15 General Appearance: Nourished. No Apparent Distress HEENT: EOMI, DA. No Pharyngeal Erythema, Tonsillar Exudate, Tonsillar Erythema Neck: No Cervical Lymphadenopathy Respiratory/Chest: Lungs Clear, Normal Breath Sounds. No Crackles, Rales, Rhonchi, Wheezing Cardiovascular: Regular Rhythm, Regular Rate. 2/6 systolic murmur noted on exam. No Gallops, Rubs Gastrointestinal/Abdominal: Normal Bowel Sounds, Soft. No Guarding, Rebound, Tenderness Musculoskeletal: No CVA Tenderness Extremity: Normal Capillary Refill Integumentary: Normal Color, Dry, Warm Neurologic: scientist propagator II-XII NML intact, Fully Oriented, Alert, Normal Mood/Affect, Normal Response, Motor Strength 5/5. Normal Finger to Nose and Heel to [place] ED Treatment Course - LABORATORY CBC & Chemistry Diagram: 11/12/17 15:15 11/12/17 15:15 Medical Decision Making - Medical Decision Making 11/12/17 15:16 The patient is a 42 year old female with a history of hypothyroidism who presents for evaluation of headache. Differential includes but is not limited to: Migraine Headache, Intracranial process, Infectious, Metabolic derangement. Given the patient's history and physical exam, it is likely her symptoms are due to migraine headache. However we will obtain a cbc, cmp, serum preg, and head CT to evaluate further for possible etiologies. We will treat in the meantime with iv fluids, iv tylenol, reglan, benadryl. We will continue to monitor and reassess while here in the ED. 11/12/17 22:06 CBC, cmp, serum preg are unremarkable. Head CT is unremarkable as read by our radiologist. Abdomen CT is unremarkable as read by our radiologist. The patient reports significant improvement in her symptoms. We are comfortable discharging the patient home with primary care provider follow up. We discussed the results, plan, and return precautions with the patient who voiced understanding and is agreeable with the plan. *DC/Admit/Observation/Transfer Diagnosis at time of Disposition: Headache Qualifiers: Headache type: unspecified Headache chronicity pattern: unspecified pattern Intractability: not intractable Qualified Code(s): R51 - Headache Abdominal pain Qualifiers: Abdominal location: unspecified location Qualified Code(s): R10.9 - Unspecified abdominal pain - Discharge Dispostion Disposition: HOME Condition at time of disposition: Stable Decision to Admit order: No - Referrals - Patient Instructions Printed Discharge Instructions: DI for Migraine, DI for Ovarian Cyst, DI for Abdominal Pain-Adult Additional Instructions: Please return to the ER if you experience concerning or worsening symptoms including worsening headache, abdominal pain, or vomiting. Your lab results were normal here in the ER. It is important that you call to schedule a follow up appointment with your primary care provider Dr. Lopez within 2-3 days to discuss your ER visit and further management of your symptoms. Print Language: PASHTO - Post Discharge Activity
[2017-11-12] MEDS ORDERED: METOCLOPRAMIDE HCL INJECTION 10 MG/2 ML VIAL IVPUSH ONE (15:01)
[2017-11-12] MEDS ORDERED: ACETAMINOPHEN 1000 MG/100 ML VIAL (NON FORMULARY) IVPB ONE (15:01)
[2017-11-12] MEDS ORDERED: SODIUM CHLORIDE 1,000 ML IV STA (15:01)
[2017-11-12] MEDS ORDERED: ACETAMINOPHEN INJECTION 100 ML IVPB ONE (15:12)
[2017-11-12] MEDS ORDERED: METOCLOPRAMIDE HCL INJECTION 10 MG/2 ML VIAL ONE (15:12)
[2017-11-12 15:32] LABS: BASO % 0.6 % (0-2.0); EOS % 1.1 % (0-4.5); HEMATOCRIT 36.4 % (32.4-45.2); HEMOGLOBIN 12.2 GM/dL (10.7-15.3); LYMPH % 12.4 % (8-40); MCH 31.1 pg (25.7-33.7); MCHC 33.4 g/dl (32.0-36.0); MEAN CELL VOLUME 93.1 fl (80-96); MEAN PLT VOLUME 9.1 fl (7.5-11.1); NEUT % 81.9 % (42.8-82.8); PLATELET COUNT 246 K/MM3 (134-434); RBC 3.91 M/mm3 (3.60-5.2); RDW 14.1 % (11.6-15.6)
--- NOTE | 2017-11-12 15:42 | PDOC ---
Attending Attestation - Resident Resident Name: Fer Jaimes - ED Attending Attestation I have performed the following: I have examined & evaluated the patient, The case was reviewed & discussed with the resident, I agree w/resident's findings & plan, Exceptions are as noted - HPI HPI: 11/12/17 15:37 The patient is a 42 year old female, with a significant past medical history of hypothyroidism, migraines, who presents to the emergency department with a headache for approximately 4 days. The patient reports gradual onset of a throbbing/pulsating headache over the past 4 days. She reports associated dizziness, photophobia, nausea, and generalized fatigue. She reports similar headaches in the past, but they usually don't last this long. She reports taking Ibuprofen for her symptoms with minimal relief. Denies neck stiffness. Denies fevers. Pt also reports onset of lower abdominal pain last night. She states that the pain is constant, associated with nausea. Pt denies F/C. Pt states she had similar abdominal pain in the past and was diagnosed with pancreatitis. Pt has had cholecystectomy in the past, no other surgeries. She denies any dysuria, hematuria, frequency, or urgency. She denies any recent travel or sick contacts. - Physicial Exam PE: 11/12/17 15:40 "GENERAL: Awake, alert, and fully oriented, in no acute distress. HEAD: No signs of trauma EYES: PERRLA, EOMI, sclera anicteric, conjunctiva clear ENT: Auricles normal inspection, hearing grossly normal, nares patent, oropharynx clear without exudates. Moist mucosa NECK: Nontender, no stepoffs, Normal ROM, supple, no lymphadenopathy, JVD, or masses LUNGS: Breath sounds equal, clear to auscultation bilaterally. No wheezes, and no crackles HEART: Regular rate and rhythm, normal S1 and S2, no murmurs, rubs or gallops ABDOMEN: + RLQ tenderness, normoactive bowel sounds. No guarding, no rebound. No masses EXTREMITIES: Normal range of motion, no edema. No clubbing or cyanosis. No cords, erythema, or tenderness NEUROLOGICAL: Cranial nerves II through XII intact. 5/5 strength and sensation in all extremities, Normal speech, normal gait, normal cerebellar function SKIN: Warm, Dry, normal turgor, no rashes or lesions noted. " - Medical Decision Making 11/12/17 15:40 42 yo F with headache and abdominal pain. BURRIS seems consistent with pt's prior migraines. No red flags for meningitis or SAH. Pt also with abdominal pain and RLQ tenderness on exam. Concerning for acute appy. - Labs, UA - CTAP - IVF, tylenol, reglan 11/12/17 17:03 Pt unable to get IV contrast, will obtain CTAP with PO contrast only
[2017-11-12 15:56] LABS: ALBUMIN 2.9 g/dl (3.4-5.0); ALK PHOS 70 U/L (45-117); ANION GAP 5 (8-16); BILIRUBIN,TOTAL 0.3 mg/dL (0.2-1.0); BLOOD UREA NITROGEN 10 mg/dL (7-18); CHLORIDE 108 mmol/L (98-107); CO2 29 mmol/L (21-32); CREATININE 0.6 mg/dL (0.55-1.02); GLUCOSE,RANDOM 98 mg/dL (74-106); LIPASE 104 U/L (73-393); SGOT/AST 41 U/L (15-37); SGPT/ALT 32 U/L (12-78); SODIUM 142 mmol/L (136-145); TOT PROT 6.1 g/dl (6.4-8.2)
[2017-11-12 18:13] VITALS: TEMP 98.4
--- NOTE | 2017-11-12 19:23 | PDOC ---
*Physical Exam - Vital Signs Last Vital Signs Temp Pulse Resp BP Pulse Ox 98.4 F 62 18 105/68 98 11/12/17 18:12 11/12/17 18:12 11/12/17 18:12 11/12/17 18:12 11/12/17 18:12 ED Treatment Course - LABORATORY CBC & Chemistry Diagram: 11/12/17 15:15 11/12/17 15:15 - ADDITIONAL ORDERS Additional order review: Laboratory Results 11/12/17 11/12/17 15:15 15:15 Sodium 142 Potassium 4.0 Chloride 108 H Carbon Dioxide 29 Anion Gap 5 L BUN 10 Creatinine 0.6 Creat Clearance w eGFR > 60 Random Glucose 98 Calcium 8.0 L Total Bilirubin 0.3 D AST 41 H ALT 32 Alkaline Phosphatase 70 Total Protein 6.1 L Albumin 2.9 L Lipase 104 Serum , Qual Negative 11/12/17 15:15 RBC 3.91 MCV 93.1 MCHC 33.4 RDW 14.1 MPV 9.1 Neutrophils % 81.9 D Lymphocytes % 12.4 D Monocytes % 4.0 Eosinophils % 1.1 Basophils % 0.6 - RADIOLOGY Radiology Studies Ordered: Category Date Time Status ABDOMEN & PELVIS CT W/O CONTR [CT] Stat CT Scan 11/12/17 17:[address] WITHOUT CONTRAST [CT] Stat CT Scan 11/12/17 15:05 Completed - Medications Given in the ED: ED Medications Discontinued Medications Generic Name Dose Route Start Last Admin Trade Name Freq PRN Reason Stop Dose Admin Acetaminophen 1,000 mg 11/12/17 15:01 11/12/17 15:36 Ofirmev Injection - IVPB 11/12/17 15:02 1,000 mg ONCE ONE Administration Diphenhydramine HCl 25 mg 11/12/17 15:01 11/12/17 15:31 Benadryl Injection - IVPUSH 11/12/17 15:02 25 mg ONCE ONE Administration Sodium Chloride 1,000 mls @ 1,000 mls/hr 11/12/17 15:01 11/12/17 15:30 Normal Saline - IV 11/12/17 16:00 1,000 mls/hr ASDIR STA Administration Metoclopramide HCl 10 mg 11/12/17 15:01 11/12/17 15:54 Reglan Injection - IVPUSH 11/12/17 15:02 10 mg ONCE ONE Administration
[2017-11-12 20:19] LABS: URINE APPEARANCE CLEAR; URINE BILIRUBIN NEGATIVE (<2.0 mg/dL); URINE COLOR STRAW; URINE GLUCOSE (UA) NEGATIVE (NEGATIVE); URINE KETONE NEGATIVE (NEGATIVE); URINE LEUK ESTERASE NEGATIVE (NEGATIVE); URINE NITRITE NEGATIVE (NEGATIVE); URINE PROTEIN NEGATIVE (NEGATIVE); URINE UROBILINOGEN NEGATIVE mg/dL (0.2-1.0)
[2017-11-12 20:31] LABS: EPI CELLS RARE /HPF (FEW); URINE MUCUS RARE
--- NOTE | 2017-11-12 21:56 | PDOC ---
*Physical Exam - Vital Signs Last Vital Signs Temp Pulse Resp BP Pulse Ox 98.4 F 62 18 105/68 98 11/12/17 18:12 11/12/17 18:12 11/12/17 18:12 11/12/17 18:12 11/12/17 18:12 ED Treatment Course - LABORATORY CBC & Chemistry Diagram: 11/12/17 15:15 11/12/17 15:15 - ADDITIONAL ORDERS Additional order review: Laboratory Results 11/12/17 11/12/17 11/12/17 19:22 15:15 15:15 Sodium 142 Potassium 4.0 Chloride 108 H Carbon Dioxide 29 Anion Gap 5 L BUN 10 Creatinine 0.6 Creat Clearance w eGFR > 60 Random Glucose 98 Calcium 8.0 L Total Bilirubin 0.3 D AST 41 H ALT 32 Alkaline Phosphatase 70 Total Protein 6.1 L Albumin 2.9 L Lipase 104 Serum , Qual Negative Urine Color Straw Urine Appearance Clear Urine pH 6.0 Ur Specific [place] 1.009 Urine Protein Negative Urine Glucose (UA) Negative Urine Ketones Negative Urine Blood 2+ H Urine Nitrite Negative Urine Bilirubin Negative Urine Urobilinogen Negative Ur Leukocyte Esterase Negative Urine WBC (Auto) 1 Urine RBC (Auto) 2 Ur Epithelial Cells Rare Urine Mucus Rare 11/12/17 15:15 RBC 3.91 MCV 93.1 MCHC 33.4 RDW 14.1 MPV 9.1 Neutrophils % 81.9 D Lymphocytes % 12.4 D Monocytes % 4.0 Eosinophils % 1.1 Basophils % 0.6 - Medications Given in the ED: ED Medications Discontinued Medications Generic Name Dose Route Start Last Admin Trade Name Freq PRN Reason Stop Dose Admin Acetaminophen 1,000 mg 11/12/17 15:01 11/12/17 15:36 Ofirmev Injection - IVPB 11/12/17 15:02 1,000 mg ONCE ONE Administration Diphenhydramine HCl 25 mg 11/12/17 15:01 11/12/17 15:31 Benadryl Injection - IVPUSH 11/12/17 15:02 25 mg ONCE ONE Administration Sodium Chloride 1,000 mls @ 1,000 mls/hr 11/12/17 15:01 11/12/17 15:30 Normal Saline - IV 11/12/17 16:00 1,000 mls/hr ASDIR STA Administration Metoclopramide HCl 10 mg 11/12/17 15:01 11/12/17 15:54 Reglan Injection - IVPUSH 11/12/17 15:02 10 mg ONCE ONE Administration Medical Decision Making - Medical Decision Making 11/12/17 21:58 Care received at 1700 Briefly, pt here for headache, consistent with previous migraines as well as lower abd pain CTH wnl CTAP with possible recently ruptured L sided ovarian cyst Currently, pt is feeling much better, headache is improved and abd exam is benign with no ttp Pt tolerating PO, requesting DC home Pt given return precautions, is clinically well appearing I discussed the physical exam findings, ancillary test results and final diagnoses with the patient. I answered all of the patient's questions. The patient was satisfied with the care received and felt comfortable with the discharge plan and treatment plan. The patient will call their primary care physician within 24 hours to arrange follow-up and will return to the Emergency Department with any new, persistent or worsening symptoms. *DC/Admit/Observation/Transfer Diagnosis at time of Disposition: Headache Qualifiers: Headache type: unspecified Headache chronicity pattern: unspecified pattern Intractability: not intractable Qualified Code(s): R51 - Headache Abdominal pain Qualifiers: Abdominal location: unspecified location Qualified Code(s): R10.9 - Unspecified abdominal pain - Discharge Dispostion Disposition: HOME Condition at time of disposition: Stable - Referrals - Patient Instructions Printed Discharge Instructions: DI for Migraine, DI for Ovarian Cyst, DI for Abdominal Pain-Adult Additional Instructions: Please return to the ER if you experience concerning or worsening symptoms including worsening headache, abdominal pain, or vomiting. Your lab results were normal here in the ER. It is important that you call to schedule a follow up appointment with your primary care provider Dr. Lopez within 2-3 days to discuss your ER visit and further management of your symptoms. Print Language: ALBANIAN - Post Discharge Activity
[2017-11-12 22:12] VITALS: BP 95/54; PULSE 54
== END 2017-11-12 22:12 | disposition home or self-care (01) ==
LOC: JER 14:27
PROC: 3E0337Z Introduction of Electrolytic and Water Balance Substance into Peripheral Vein, Percutaneous Approach (ICD-10-PCS; principal; 2017-11-12)
PROC: 3E033NZ Introduction of Analgesics, Hypnotics, Sedatives into Peripheral Vein, Percutaneous Approach (ICD-10-PCS; 2017-11-12)
PROC: 3E033GC Introduction of Other Therapeutic Substance into Peripheral Vein, Percutaneous Approach (ICD-10-PCS; 2017-11-12)
PROC: 3E033GC Introduction of Other Therapeutic Substance into Peripheral Vein, Percutaneous Approach (ICD-10-PCS; 2017-11-12)
DX: G43.909 Migraine, unspecified, not intractable, without status migrainosus (principal); N83.202 Unspecified ovarian cyst, left side
CPT/HCPCS: 36415; 70450-TC; 74176-TC; 80053; 81003; 81015; 83690; 84703; 85025; 96361; 96374; 96375; 99284-25; J0131; J7030

== ENCOUNTER 2018-10-03 08:56 | Emergency (ER) | payer OTHER ==
[2018-10-03 09:08] VITALS: TEMP 98.3; BMI 33.6
[2018-10-03 10:31] LABS: EPI CELLS 1.9 /HPF (0-5/HPF); HCG,QUALITATIVE URINE Negative; URINE APPEARANCE CLEAR; URINE BACTERIA 16.3 /hpf (NEGATIVE); URINE BILIRUBIN NEGATIVE (NEGATIVE); URINE CASTS 1 /hpf (0-8); URINE COLOR YELLOW; URINE GLUCOSE (UA) NEGATIVE (NEGATIVE); URINE KETONE TRACE (NEGATIVE); URINE LEUK ESTERASE NEGATIVE (NEGATIVE); URINE NITRITE NEGATIVE (NEGATIVE); URINE PROTEIN NEGATIVE (NEGATIVE); URINE RBC 29 /hpf (0-4); URINE WBC 1 /hpf (0-5)
[2018-10-03] MEDS ORDERED: ONDANSETRON *ODT* 4 MG TABLET SL ONE (10:45)
[2018-10-03] MEDS ORDERED: ACETAMINOPHEN 325 MG TABLET (FP) PO ONE (10:45)
[2018-10-03] MEDS ORDERED: ACETAMINOPHEN 325 MG TABLET (FP) ONE (10:49)
[2018-10-03] MEDS ORDERED: ONDANSETRON *ODT* 4 MG TABLET ONE (10:50)
--- NOTE | 2018-10-03 10:59 | PDOC ---
History of Present Illness - General Chief Complaint: Pain Stated Complaint: RT ABD PAIN Time Seen by Provider: 10/03/18 10:29 History Source: Patient Exam Limitations: No Limitations - History of Present Illness Travel History: No Initial Comments: 10/03/18 10:49 43 y/o female presents to the ED with c/o rt lower abd cramping pain worse with movement x 2-3 days. pt also states nausea without vomiting. pt denies fever, chills, diarrhea, vaginal discharge, irreg menses, ovarian cyst, gi d/o. Pt has not taken anything for pain. Timing/Duration: reports: intermittent Quality: reports: mild, cramping, sharpness Abdominal Pain Onset Location: reports: suprapubic (rt) Pain Radiation: reports: no radiation Activities at Onset: reports: exertion Aggravating Factors: improves with: Movement Alleviating Factors: improves with: None Past History - Travel Traveled outside of the country in the last 30 days: No Close contact w/someone who was outside of country & ill: No - Past Medical History Allergies/Adverse Reactions: Allergies Allergy/AdvReac Type Severity Reaction Status Date / Time No Known Drug Allergies Allergy Verified 11/12/17 14:33 Home Medications: Ambulatory Orders NK [No Known Home Medication] 11/12/17 COPD: No Disorders: Yes (KIDNEY STONES) - Surgical History Cholecystectomy: Yes - Suicide/Smoking/Psychosocial Hx Smoking Status: No Smoking History: Never smoked Have you smoked in the past 12 months: No Number of Cigarettes Smoked Daily: 0 Information on smoking cessation initiated: No Hx Alcohol Use: No Drug/Substance Use Hx: No Substance Use Type: None Hx Substance Use Treatment: No Patient Lives Alone: No Lives with/in: spouse/SO Review of Systems - Review of Systems Able to Perform ROS?: Yes Constitutional: No: Symptoms Reported HEENTM: No: Symptoms Reported Respiratory: No: Symptoms reported ABD/GI: Yes: Abdominal cramping : No: Dysuria, Discharge, Frequency Musculoskeletal: No: Symptoms Reported Integumentary: No: Symptoms Reported Neurological: No: Symptoms reported *Physical Exam - Vital Signs Last Vital Signs Temp Pulse Resp BP Pulse Ox 98.3 F 67 18 121/73 97 10/03/18 09:05 10/03/18 09:05 10/03/18 09:05 10/03/18 09:05 10/03/18 09:05 - Physical Exam General Appearance: Yes: Nourished, Appropriately Dressed. No: Apparent Distress HEENT: positive: Pharynx Normal. negative: Pale Conjunctivae Neck: positive: Supple Cardiovascular: positive: Regular Rhythm, Regular Rate. negative: Murmur Female Pelvic Exam: positive: normal external exam (no discharge) Gastrointestinal/Abdominal: positive: Soft, Tenderness (rt suprapubic) Musculoskeletal: negative: CVA Tenderness Extremity: positive: Normal Capillary Refill, Normal Range of Motion. negative : Pedal Edema Integumentary: positive: Normal Color, Warm, Moist Neurologic: positive: Normal Mood/Affect, Motor Strength 5/5 (ambulatory) ED Treatment Course - LABORATORY CBC & Chemistry Diagram: 10/03/18 10:56 10/03/18 10:47 - ADDITIONAL ORDERS Additional order review: Laboratory Results 10/03/18 10:16 Urine Color Yellow Urine Appearance Clear Urine pH 6.0 Ur Specific Hooks 1.026 Urine Protein Negative Urine Glucose (UA) Negative Urine Ketones Trace H Urine Blood 3+ H Urine Nitrite Negative Urine Bilirubin Negative Urine Urobilinogen 1.0 Ur Leukocyte Esterase Negative Urine WBC (Auto) 1 Urine RBC (Auto) 29 Urine Casts (Auto) 1 U Epithel Cells (Auto) 1.9 Urine Bacteria (Auto) 16.3 Urine HCG, Qual Negative - RADIOLOGY Radiology Studies Ordered: Category Date Time Status TRANSVAGINAL ULTRASOUND US [US] Stat Ultrasound 10/03/18 10:42 Ordered Medical Decision Making - Medical Decision Making 10/03/18 11:02 CC: rt suprapubic pain with movment x 2-3 days, + nausea Exam: rt suprapubic tenderness, no vag discharge, no cva tenderness Plan: ua, labs, zofran, percocet, and u/s 10/03/18 12:52 Laboratory Tests 10/03/18 10/03/18 10/03/18 10:16 10:47 10:56 WBC 7.5 Hgb 13.0 Hct 38.9 Absolute Neuts (auto) 5.8 Neutrophils % 76.6 Sodium 140 Potassium 4.4 Chloride 108 H Carbon Dioxide 28 Anion Gap 4 L BUN 11 Creatinine 0.6 Creat Clearance w eGFR 110.17 Random Glucose 103 Calcium 8.3 L Total Bilirubin 0.3 AST 17 ALT 34 Alkaline Phosphatase 78 Total Protein 6.6 Albumin 3.4 Urine Ketones Trace H Urine Blood 3+ H Urine Nitrite Negative Urine Bilirubin Negative Ur Leukocyte Esterase Negative Urine WBC (Auto) 1 Urine RBC (Auto) 29 Pt is currently not menstrating.Pt states pain resolved but mild nausea presently. pt did not eat today. Pt ordered for spiral ct to r/o stone secondary to hematuria. Abd u/s shows small cyst to rt ovary . Pt will eat upon ct return 10/03/18 14:00 + 3 mm nonobstructing renal stone and punctate nonobstructing stones. No hydronephrosis or hydroureter. Normal appearing appendix. Pt will be discharged home with flomax and motrin w/ urology referral *DC/Admit/Observation/Transfer Diagnosis at time of Disposition: Renal colic - Discharge Dispostion Disposition: HOME Condition at time of disposition: Improved - Referrals Referrals: Shellie Cisneros MD [Primary Care Provider] - Gumaro Mayo MD [Staff Physician] - - Patient Instructions Printed Discharge Instructions: DI for Kidney Stones Additional Instructions: Please drink at least 2 liters of water daily. Take flomax as prescribed and take Motrin as needed for pain. - Post Discharge Activity
[2018-10-03 11:07] LABS: EOS % 1.6 % (0-4.5); HEMATOCRIT 38.9 % (32.4-45.2); LYMPH % 15.9 % (8-40); MCH 30.8 pg (25.7-33.7); MCHC 33.3 g/dl (32.0-36.0); MEAN CELL VOLUME 92.6 fl (80-96); MEAN PLT VOLUME 9.6 fl (7.5-11.1); MONO % 4.9 % (3.8-10.2); NEUT % 76.6 % (42.8-82.8); PLATELET COUNT 242 K/MM3 (134-434); RDW 14.3 % (11.6-15.6); WHITE BLOOD COUNT 7.5 K/mm3 (4.0-10.0)
[2018-10-03 11:33] LABS: ALBUMIN 3.4 g/dl (3.4-5.0); ALK PHOS 78 U/L (45-117); ANION GAP 4 MMOL/L (8-16); BILIRUBIN,TOTAL 0.3 mg/dL (0.2-1); BLOOD UREA NITROGEN 11 mg/dL (7-18); CALCIUM 8.3 mg/dL (8.5-10.1); CHLORIDE 108 mmol/L (98-107); CO2 28 mmol/L (21-32); CREATININE 0.6 mg/dL (0.55-1.3); GLUCOSE,RANDOM 103 mg/dL (74-106); POTASSIUM 4.4 mmol/L (3.5-5.1); SGOT/AST 17 U/L (15-37); SGPT/ALT 34 U/L (13-61); SODIUM 140 mmol/L (136-145); TOT PROT 6.6 g/dl (6.4-8.2)
[2018-10-03 14:23] VITALS: BP 110/77; PULSE 56
== END 2018-10-03 14:23 | disposition home or self-care (01) ==
LOC: JER 08:56
DX: N20.0 Calculus of kidney (principal); Z87.442 Personal history of urinary calculi; N83.201 Unspecified ovarian cyst, right side
CPT/HCPCS: 36415; 74176-TC; 76830-TC; 80053; 81003; 84703; 85025; 99282-25; Q0162

== ENCOUNTER 2020-06-22 10:21 | Emergency (ER) | payer OTHER ==
[2020-06-22 10:30] VITALS: BMI 34.1
[2020-06-22] MEDS ORDERED: SODIUM CHLORIDE 0.9% 500 ML INFUS.BAG IV ONE (11:29)
[2020-06-22] MEDS ORDERED: ONDANSETRON 4 MG/2 ML VIAL IVPUSH ONE ×2 (11:31→13:47)
[2020-06-22] MEDS ORDERED: KETOROLAC TROMETHAMINE 30 MG/1 ML VIAL IVPUSH ONE (11:31)
[2020-06-22] MEDS ORDERED: KETOROLAC TROMETHAMINE 30 MG/1 ML VIAL ONE (11:35)
[2020-06-22] MEDS ORDERED: ONDANSETRON 4 MG/2 ML VIAL ONE ×2 (11:35→15:09)
[2020-06-22 12:22] LABS: BASO % 0.5 % (0-2.0); EOS % 0.1 % (0-4.5); HEMATOCRIT 42.1 % (32.4-45.2); HEMOGLOBIN 13.9 GM/dL (10.7-15.3); LYMPH % 19.8 % (8-40); MCH 30.5 pg (25.7-33.7); MCHC 33.1 g/dl (32.0-36.0); MEAN PLT VOLUME 10.3 fl (7.5-11.1); MONO % 7.4 % (3.8-10.2); NEUT % 72.2 % (42.8-82.8); PLATELET COUNT 199 K/MM3 (134-434); RBC 4.58 M/mm3 (3.60-5.2); RDW 14.4 % (11.6-15.6); WHITE BLOOD COUNT 5.4 K/mm3 (4.0-10.0)
[2020-06-22 12:29] LABS: EPI CELLS 18 /uL (0-25.1); HYALINE CASTS 2 /uL (0-3.1); URINE APPEARANCE CLEAR; URINE BACTERIA 24 /uL (0-1359); URINE BILIRUBIN NEGATIVE (NEGATIVE); URINE COLOR YELLOW; URINE GLUCOSE (UA) NEGATIVE (NEGATIVE); URINE KETONE NEGATIVE (NEGATIVE); URINE LEUK ESTERASE NEGATIVE (NEGATIVE); URINE NITRITE NEGATIVE (NEGATIVE); URINE PROTEIN TRACE (NEGATIVE); URINE RBC 106 /uL (0-23.9); URINE UROBILINOGEN 0.2 mg/dL (0.2-1.0); URINE WBC 13 /uL (0-25.8)
[2020-06-22 12:34] LABS: CHLORIDE 107 mmol/L (98-107); SODIUM 142 mmol/L (136-145)
[2020-06-22 12:36] LABS: ALBUMIN 3.5 g/dl (3.4-5.0); ANION GAP 6 MMOL/L (8-16); BLOOD UREA NITROGEN 16.6 mg/dL (7-18); CALCIUM 8.3 mg/dL (8.5-10.1); CO2 29 mmol/L (21-32); LIPASE 141 U/L (73-393)
[2020-06-22 12:37] LABS: GLUCOSE,RANDOM 87 mg/dL (74-106)
[2020-06-22 12:39] LABS: CREATININE 0.7 mg/dL (0.55-1.3); SGOT/AST 58 U/L (15-37); SGPT/ALT 69 U/L (13-61)
[2020-06-22 12:41] LABS: BILIRUBIN,TOTAL 0.4 mg/dL (0.2-1); TOT PROT 7.2 g/dl (6.4-8.2)
[2020-06-22 12:42] LABS: ALK PHOS 110 U/L (45-117)
[2020-06-22] MEDS ORDERED: morphine CARPU-JECT 4 MG/1 ML DISP.SYRIN IVPUSH ONE (13:46)
[2020-06-22] MEDS ORDERED: FAMOTIDINE 20 MG/50 ML IVPB 20 MG/50 ML MG IVPB ONE ×2 (13:51→15:10)
[2020-06-22] MEDS ORDERED: ACETAMINOPHEN 500 MG TABLET (FP) PO ONE (14:45)
[2020-06-22] MEDS ORDERED: ACETAMINOPHEN INJECTION 100 ML IVPB ONE (15:09)
[2020-06-22 17:47] VITALS: BP 116/67; PULSE 76; TEMP 98.4
== END 2020-06-22 17:47 | disposition home or self-care (01) ==
LOC: JER 10:21
PROC: 3E033NZ Introduction of Analgesics, Hypnotics, Sedatives into Peripheral Vein, Percutaneous Approach (ICD-10-PCS; principal; 2020-06-22)
PROC: 3E0233Z Introduction of Anti-inflammatory into Muscle, Percutaneous Approach (ICD-10-PCS; 2020-06-22)
DX: U07.1 COVID-19 (principal)
CPT/HCPCS: 36415; 74176-TC; 80053; 81003; 83690; 84702; 85025; 87077; 87086; 87186; 99285-25; C9803; U0003

== ENCOUNTER 2021-09-25 04:22 | Day surgery (SDC) | payer OTHER ==
[2021-09-22 14:56] VITALS: BMI 30.4
[2021-09-25 09:55] VITALS: TEMP 97.8
[2021-09-25 11:23] VITALS: BP 125/89; PULSE 66
== END 2021-09-25 11:50 | disposition home or self-care (01) ==
LOC: JASU-ENDO 04:22
PROVIDERS: ATTEND Internal Medicine Gastroenterology
PROC: 0DB78ZX Excision of Stomach, Pylorus, Via Natural or Artificial Opening Endoscopic, Diagnostic (ICD-10-PCS; 2021-09-25)
PROC: 0DB68ZX Excision of Stomach, Via Natural or Artificial Opening Endoscopic, Diagnostic (ICD-10-PCS; principal; 2021-09-25 09:30)
DX: K29.50 Unspecified chronic gastritis without bleeding (principal)
CPT/HCPCS: 81025; 88305-TC; 88342-TC

== ENCOUNTER 2021-10-09 04:30 | Day surgery (SDC) | payer OTHER ==
[2021-10-07 14:58] VITALS: BMI 30.4
[2021-10-09 11:19] VITALS: BP 104/64; PULSE 59; TEMP 98.6
== END 2021-10-09 11:27 | disposition home or self-care (01) ==
LOC: JASU-ENDO 04:30
PROVIDERS: ATTEND Internal Medicine Gastroenterology
PROC: 0DJD8ZZ Inspection of Lower Intestinal Tract, Via Natural or Artificial Opening Endoscopic (ICD-10-PCS; principal; 2021-10-09 09:15)
DX: K64.8 Other hemorrhoids (principal); K62.5 Hemorrhage of anus and rectum
CPT/HCPCS: 81025

== ENCOUNTER → 2021-10-22 | Day surgery (SDC) | payer OTHER | END | disposition home or self-care (01) | LOC: JRADUS-SUR 11:24 → EDSTATUS 12:00 | PROVIDERS: ATTEND Family Medicine | PROC: 0H9T3ZX Drainage of Right Breast, Percutaneous Approach, Diagnostic (ICD-10-PCS; principal; 2021-10-22) | DX: N63.10 Unspecified lump in the right breast, unspecified quadrant (principal); N60.31 Fibrosclerosis of right breast | CPT/HCPCS: 19083; 87899; 88305-TC; A4648 ==

== ENCOUNTER 2022-02-22 09:45 | Emergency (ER) | payer OTHER ==
[2022-02-22 09:52] VITALS: BP 122/75; PULSE 62; RESP 17; TEMP 97.8; BMI 29.9
[2022-02-22] MEDS ORDERED: ONDANSETRON 4 MG/2 ML VIAL IVPUSH ONE (10:17)
[2022-02-22] MEDS ORDERED: SODIUM CHLORIDE 0.9% 500 ML INFUS.BAG IV ONE (10:17)
[2022-02-22] MEDS ORDERED: morphine CARPU-JECT 4 MG/1 ML DISP.SYRIN IVPUSH ONE (10:18)
[2022-02-22] MEDS ORDERED: morphine SULFATE 4 MG/ML VIAL ONE (10:21)
[2022-02-22] MEDS ORDERED: ONDANSETRON 4 MG/2 ML VIAL ONE (10:21)
[2022-02-22 10:55] LABS: BASO % 0.8 % (0-2.0); EOS % 1.4 % (0-4.5); HEMATOCRIT 40.4 % (32.4-45.2); HEMOGLOBIN 13.3 GM/dL (10.7-15.3); LYMPH % 19.1 % (8-40); MCH 30.2 pg (25.7-33.7); MCHC 32.9 g/dl (32.0-36.0); MEAN CELL VOLUME 91.9 fl (80-96); MEAN PLT VOLUME 9.8 fl (7.5-11.1); MONO % 4.6 % (3.8-10.2); NEUT % 74.1 % (42.8-82.8); PLATELET COUNT 256 10^3/uL (134-434); RDW 14.2 % (11.6-15.6); WHITE BLOOD COUNT 10.7 K/mm3 (4.0-10.0)
[2022-02-22 11:15] LABS: CALCIUM 9.1 mg/dL (8.5-10.1)
[2022-02-22 11:16] LABS: ALBUMIN 3.6 g/dl (3.4-5.0)
[2022-02-22 11:18] LABS: CREATININE 0.7 mg/dL (0.55-1.3)
[2022-02-22 11:19] LABS: EPI CELLS 3 /uL (0-25.1); HCG,QUALITATIVE URINE Negative; HYALINE CASTS 0 /uL (0-3.1); URINE APPEARANCE CLEAR; URINE BACTERIA 5 /uL (0-1359); URINE BILIRUBIN NEGATIVE (NEGATIVE); URINE COLOR YELLOW; URINE GLUCOSE (UA) NEGATIVE (NEGATIVE); URINE KETONE NEGATIVE (NEGATIVE); URINE LEUK ESTERASE NEGATIVE (NEGATIVE); URINE NITRITE NEGATIVE (NEGATIVE); URINE PROTEIN NEGATIVE (NEGATIVE); URINE RBC 33 /uL (0-23.9); URINE UROBILINOGEN 0.2 mg/dL (0.2-1.0); URINE WBC 2 /uL (0-25.8)
[2022-02-22 11:20] LABS: BILIRUBIN,TOTAL 0.4 mg/dL (0.2-1); TOT PROT 7.2 g/dl (6.4-8.2)
[2022-02-22] MEDS ORDERED: KETOROLAC TROMETHAMINE 30 MG/1 ML VIAL IVPB ONE (12:26)
[2022-02-22] MEDS ORDERED: KETOROLAC TROMETHAMINE 30 MG/1 ML VIAL ONE (12:29)
== END 2022-02-22 14:35 | disposition home or self-care (01) ==
LOC: JER 09:45
PROC: 3E033GC Introduction of Other Therapeutic Substance into Peripheral Vein, Percutaneous Approach (ICD-10-PCS; principal; 2022-02-22)
DX: R10.31 Right lower quadrant pain (principal)
CPT/HCPCS: 36415; 74177-TC; 76830-TC; 80053; 81003; 83690; 84703; 85025; 87077; 87086; 99285-25; Q9967

== ENCOUNTER 2022-03-31 18:25 | Emergency (ER) | payer OTHER ==
[2022-03-31 18:37] VITALS: BP 132/83; PULSE 85; RESP 20; TEMP 98.6; BMI 30.2
[2022-03-31] MEDS ORDERED: KETOROLAC TROMETHAMINE 30 MG/1 ML VIAL IM ONE (19:55)
[2022-03-31] MEDS ORDERED: KETOROLAC TROMETHAMINE 30 MG/1 ML VIAL ONE (19:59)
== END 2022-03-31 22:23 | disposition home or self-care (01) ==
LOC: JERFT 18:25
PROC: 3E023GC Introduction of Other Therapeutic Substance into Muscle, Percutaneous Approach (ICD-10-PCS; principal; 2022-03-31)
DX: M25.561 Pain in right knee (principal)
CPT/HCPCS: 73562-TC-RT-FY; 93971-TC; 99284-25

== ENCOUNTER 2022-06-06 10:26 | Emergency (ER) | payer OTHER ==
[2022-06-06 11:00] VITALS: BP 135/81; PULSE 69; RESP 18; TEMP 98.7; BMI 31.1
[2022-06-06] MEDS ORDERED: ONDANSETRON 4 MG/2 ML VIAL IVPUSH ONE (11:17)
[2022-06-06] MEDS ORDERED: KETOROLAC TROMETHAMINE 30 MG/1 ML VIAL IVPUSH ONE (11:17)
[2022-06-06] MEDS ORDERED: SODIUM CHLORIDE 0.9% 500 ML INFUS.BAG IV ONE (11:17)
[2022-06-06] MEDS ORDERED: KETOROLAC TROMETHAMINE 30 MG/1 ML VIAL ONE (11:35)
[2022-06-06] MEDS ORDERED: ONDANSETRON 4 MG/2 ML VIAL ONE (11:35)
[2022-06-06 12:16] LABS: BASO % 0.7 % (0-2.0); EOS % 1.8 % (0-4.5); HEMATOCRIT 40.1 % (32.4-45.2); HEMOGLOBIN 13.6 GM/dL (10.7-15.3); MCHC 33.8 g/dl (32.0-36.0); MEAN CELL VOLUME 91.8 fl (80-96); MEAN PLT VOLUME 9.1 fl (7.5-11.1); MONO % 4.4 % (3.8-10.2); NEUT % 71.1 % (42.8-82.8); PLATELET COUNT 277 10^3/uL (134-434); RBC 4.37 M/mm3 (3.60-5.2); RDW 13.9 % (11.6-15.6); WHITE BLOOD COUNT 9.7 K/mm3 (4.0-10.0)
[2022-06-06 12:23] LABS: EPI CELLS 18 /uL (0-25.1); HYALINE CASTS 0 /uL (0-3.1); INR 0.97 (0.83-1.09); PH,URINE 5.5 (5.0-8.0); PROTHROMBIN TIME (PATIENT) 11.2 SEC (9.7-13.0); URINE APPEARANCE CLEAR; URINE BACTERIA 77 /uL (0-1359); URINE BILIRUBIN NEGATIVE (NEGATIVE); URINE COLOR YELLOW; URINE GLUCOSE (UA) NEGATIVE (NEGATIVE); URINE KETONE NEGATIVE (NEGATIVE); URINE LEUK ESTERASE NEGATIVE (NEGATIVE); URINE NITRITE NEGATIVE (NEGATIVE); URINE PROTEIN NEGATIVE (NEGATIVE); URINE RBC 61 /uL (0-23.9); URINE UROBILINOGEN 0.2 mg/dL (0.2-1.0); URINE WBC 21 /uL (0-25.8)
[2022-06-06 12:28] LABS: ALBUMIN 3.3 g/dl (3.4-5.0); BLOOD UREA NITROGEN 17.9 mg/dL (7-18)
[2022-06-06 12:31] LABS: CREATININE 0.7 mg/dL (0.55-1.3)
[2022-06-06 12:33] LABS: BILIRUBIN,TOTAL 0.4 mg/dL (0.2-1); TOT PROT 7.1 g/dl (6.4-8.2)
== END 2022-06-06 14:42 | disposition home or self-care (01) ==
LOC: JER 10:26 → JERFT 10:26
PROC: 3E033GC Introduction of Other Therapeutic Substance into Peripheral Vein, Percutaneous Approach (ICD-10-PCS; principal; 2022-06-06)
DX: M54.50 Low back pain, unspecified (principal)
CPT/HCPCS: 0241U-QW; 36415; 74176-TC; 80053; 81003; 84703; 85025; 85610; 87077; 87086; 99285-25

== ENCOUNTER → 2022-12-31 | Day surgery (SDC) | payer OTHER | END | disposition home or self-care (01) | LOC: FRADUS-SUR 10:08 | PROVIDERS: ATTEND Family Medicine | PROC: 0HBT3ZX Excision of Right Breast, Percutaneous Approach, Diagnostic (ICD-10-PCS; principal; 2022-12-31) | DX: C50.411 Malignant neoplasm of upper-outer quadrant of right female breast (principal); Z17.0 Estrogen receptor positive status [ER+]; D05.11 Intraductal carcinoma in situ of right breast; R92.1 Mammographic calcification found on diagnostic imaging of breast | CPT/HCPCS: 19081; 19082; 76098-TC-FY; 88305-TC; 88341-TC; 88342-TC ==

== ENCOUNTER → 2023-01-25 | Day surgery (SDC) | payer OTHER | END | disposition home or self-care (01) | LOC: JRADUS-SUR 10:06 | PROVIDERS: ATTEND Surgery Surgical Oncology | PROC: BH00ZZZ Plain Radiography of Right Breast (ICD-10-PCS; principal; 2023-01-25) | DX: C50.911 Malignant neoplasm of unspecified site of right female breast (principal) | CPT/HCPCS: 19281; 19282; A4648 ==

== ENCOUNTER 2023-01-27 04:06 | Day surgery (SDC) | payer OTHER ==
[2023-01-22 15:15] VITALS: BMI 24.0
[~2023-01-27 04:06] MED LIST: BUPIVACAINE HCL/PF 0.5% (5MG/ML) 10 ML VIAL IJ ONE
[2023-01-27] MEDS ORDERED: METHYLENE BLUE 50 MG/10 ML AMPUL ONE (11:29)
[2023-01-27] MEDS ORDERED: BUPIVACAINE HCL/PF 0.5% (5MG/ML) 10 ML VIAL ONE (11:29)
[2023-01-27] MEDS ORDERED: BENZOIN/ALOE VERA/STORAX/TOLU 58 ML BOTTLE ONE (11:30)
[2023-01-27] MEDS ORDERED: PROPOFOL 40 ML ONE (12:26)
[2023-01-27] MEDS ORDERED: MIDAZOLAM HCL 2 MG/2 ML SINGLE DOSE VIAL ONE (12:43)
[2023-01-27] MEDS ORDERED: oxyCODONE HCL 5 MG TABLET PO PRN (13:58)
[2023-01-27] MEDS ORDERED: ONDANSETRON 4 MG/2 ML VIAL IVPUSH PRN (13:58)
[2023-01-27] MEDS ORDERED: LACTATED RINGERS SOLUTION 1,000 ML IV SCH (14:00)
[2023-01-27] MEDS ORDERED: ONDANSETRON 4 MG/2 ML VIAL ONE (15:18)
[2023-01-27 16:13] VITALS: RESP 18
[2023-01-27 18:20] VITALS: BP 142/70; PULSE 62; TEMP 97.2
== END 2023-01-27 18:35 | disposition home or self-care (01) ==
LOC: JASU-SURG 04:06
PROVIDERS: ATTEND Surgery Surgical Oncology
PROC: C71L1ZZ Planar Nuclear Medicine Imaging of Upper Chest Lymphatics using Technetium 99m (Tc-99m) (ICD-10-PCS; 2023-01-27)
PROC: 0HBT0ZZ Excision of Right Breast, Open Approach (ICD-10-PCS; principal; 2023-01-27 12:00)
PROC: 07B50ZX Excision of Right Axillary Lymphatic, Open Approach, Diagnostic (ICD-10-PCS; 2023-01-27 12:00)
DX: C50.911 Malignant neoplasm of unspecified site of right female breast (principal)
CPT/HCPCS: 76098-TC-FY; 78195-TC; 81025; 88307-TC; 88342-TC; 94760; A9541; Q9968

== ENCOUNTER 2023-08-03 10:07 | Day surgery (SDC) | payer OTHER ==
[2023-08-03 10:57] LABS: BASO % 0.8 % (0-2.0); EOS % 1.8 % (0-4.5); HEMATOCRIT 39.4 % (32.4-45.2); HEMOGLOBIN 13.5 GM/dL (10.7-15.3); LYMPH % 20.9 % (8-40); MCHC 34.3 g/dl (32.0-36.0); MEAN CELL VOLUME 90.5 fl (80-96); MEAN PLT VOLUME 8.6 fl (7.5-11.1); MONO % 6.1 % (3.8-10.2); NEUT % 70.4 % (42.8-82.8); PLATELET COUNT 287 10^3/uL (134-434); RBC 4.35 M/mm3 (3.60-5.2); RDW 13.7 % (11.6-15.6); WHITE BLOOD COUNT 7.5 K/mm3 (4.0-10.0)
[2023-08-03] MEDS: LIDOCAINE HCL 1%, 10 MG/ML (20ML VIAL) ID ONE (11:00)
[2023-08-03] MEDS: GOSERELIN ACETATE 3.6 MG IMPLANT SYRINGE SQ ONE (11:04)
[2023-08-03 11:31] LABS: POTASSIUM 4.2 mmol/L (3.5-5.1)
[2023-08-03 11:34] LABS: BLOOD UREA NITROGEN 12.3 mg/dL (7-18); CALCIUM 8.8 mg/dL (8.5-10.1); MAGNESIUM 2.2 mg/dL (1.8-2.4)
[2023-08-03 11:35] LABS: ALBUMIN 3.5 g/dl (3.4-5.0)
[2023-08-03 11:38] LABS: CREATININE 0.6 mg/dL (0.55-1.3)
[2023-08-03 11:39] LABS: BILIRUBIN,TOTAL 0.6 mg/dL (0.2-1); TOT PROT 7.1 g/dl (6.4-8.2)
[2023-08-03 16:02] VITALS: BP 149/84; PULSE 66; RESP 18; TEMP 98.4
[2023-08-04 08:07] LABS: CARCINOEMBRYONIC ANTIGEN 0.9 ng/mL (0.0-4.7); FOLLICLE STIMULATING HORMONE 93.2 mIU/mL (.); LUTEINIZING HORMONE 67.1 mIU/mL (.)
== END 2023-08-03 11:15 | disposition home or self-care (01) ==
LOC: JONCCHEMO 10:07 → J7W 10:08 → JONCCHEMO 11:15
PROVIDERS: ATTEND Internal Medicine Hematology & Oncology
DX: Z51.11 Encounter for antineoplastic chemotherapy (principal); C50.911 Malignant neoplasm of unspecified site of right female breast
CPT/HCPCS: 36415; 80053; 82378; 82670; 83001; 83002; 83735; 84703; 85025; 86300; 96402; J9202

== ENCOUNTER 2023-08-31 15:43 | Day surgery (SDC) | payer OTHER ==
[2023-08-31] MEDS: GOSERELIN ACETATE 3.6 MG IMPLANT SYRINGE SQ ONE (16:48)
[2023-08-31] MEDS: LIDOCAINE HCL 1%, 10 MG/ML (20ML VIAL) ID ONE (16:51)
[2023-08-31 17:13] LABS: BASO % 0.7 % (0-2.0); EOS % 1.4 % (0-4.5); HEMATOCRIT 39.9 % (32.4-45.2); HEMOGLOBIN 13.1 GM/dL (10.7-15.3); LYMPH % 22.9 % (8-40); MCH 30.1 pg (25.7-33.7); MCHC 32.7 g/dl (32.0-36.0); MEAN CELL VOLUME 92.1 fl (80-96); MEAN PLT VOLUME 9.1 fl (7.5-11.1); MONO % 5.1 % (3.8-10.2); NEUT % 69.9 % (42.8-82.8); PLATELET COUNT 255 10^3/uL (134-434); RBC 4.34 M/mm3 (3.60-5.2); RDW 13.9 % (11.6-15.6); WHITE BLOOD COUNT 7.3 K/mm3 (4.0-10.0)
[2023-08-31 17:46] LABS: CALCIUM 9.7 mg/dL (8.5-10.1)
[2023-08-31 17:47] LABS: ALBUMIN 3.4 g/dl (3.4-5.0); BLOOD UREA NITROGEN 16.4 mg/dL (7-18); MAGNESIUM 2.4 mg/dL (1.8-2.4)
[2023-08-31 17:49] LABS: CREATININE 0.7 mg/dL (0.55-1.3)
[2023-08-31 17:51] LABS: BILIRUBIN,TOTAL 0.3 mg/dL (0.2-1)
[2023-08-31 19:14] VITALS: BP 131/83; PULSE 76; RESP 18; TEMP 98
[2023-09-02 08:11] LABS: FOLLICLE STIMULATING HORMONE 5.5 mIU/mL (.); LUTEINIZING HORMONE 2.7 mIU/mL (.)
== END 2023-08-31 17:00 | disposition home or self-care (01) ==
LOC: J7W 15:43 → JONCCHEMO 15:43
PROVIDERS: ATTEND Internal Medicine Hematology & Oncology
DX: Z51.11 Encounter for antineoplastic chemotherapy (principal); C50.911 Malignant neoplasm of unspecified site of right female breast
CPT/HCPCS: 36415; 80053; 82378; 82670; 83001; 83002; 83735; 84703; 85025; 86300; 96402; J9202

== ENCOUNTER 2023-09-28 15:51 | Day surgery (SDC) | payer OTHER ==
[2023-09-28] MEDS: GOSERELIN ACETATE 3.6 MG IMPLANT SYRINGE SQ ONE (16:09)
[2023-09-28 16:10] LABS: EOS % 1.3 % (0-4.5); HEMATOCRIT 39.5 % (32.4-45.2); HEMOGLOBIN 13.4 GM/dL (10.7-15.3); LYMPH % 19.5 % (8-40); MCHC 33.9 g/dl (32.0-36.0); MEAN CELL VOLUME 91.4 fl (80-96); MEAN PLT VOLUME 9.6 fl (7.5-11.1); MONO % 5.3 % (3.8-10.2); NEUT % 72.9 % (42.8-82.8); PLATELET COUNT 252 10^3/uL (134-434); RBC 4.32 M/mm3 (3.60-5.2); WHITE BLOOD COUNT 8.4 K/mm3 (4.0-10.0)
[2023-09-28] MEDS: LIDOCAINE HCL 1%, 10 MG/ML (20ML VIAL) ID ONE (16:13)
[2023-09-28 16:31] LABS: POTASSIUM 4.1 mmol/L (3.5-5.1)
[2023-09-28 16:32] VITALS: BP 134/80; PULSE 74; RESP 20; TEMP 98.4
[2023-09-28 16:33] LABS: ALBUMIN 3.5 g/dl (3.4-5.0); CALCIUM 9.4 mg/dL (8.5-10.1)
[2023-09-28 16:34] LABS: BLOOD UREA NITROGEN 10.7 mg/dL (7-18); MAGNESIUM 2.6 mg/dL (1.8-2.4)
[2023-09-28 16:37] LABS: CREATININE 0.6 mg/dL (0.55-1.3)
[2023-09-28 16:38] LABS: BILIRUBIN,TOTAL 0.3 mg/dL (0.2-1); TOT PROT 7.3 g/dl (6.4-8.2)
[2023-09-28 17:07] LABS: EPI CELLS 4 /uL (0-25.1); HYALINE CASTS 0 /uL (0-3.1); URINE APPEARANCE CLEAR; URINE BACTERIA 26 /uL (0-1359); URINE BILIRUBIN NEGATIVE (NEGATIVE); URINE COLOR YELLOW; URINE GLUCOSE (UA) NEGATIVE (NEGATIVE); URINE KETONE NEGATIVE (NEGATIVE); URINE LEUK ESTERASE NEGATIVE (NEGATIVE); URINE NITRITE NEGATIVE (NEGATIVE); URINE PROTEIN NEGATIVE (NEGATIVE); URINE RBC 54 /uL (0-23.9); URINE WBC 4 /uL (0-25.8)
[2023-09-30 08:19] LABS: CARCINOEMBRYONIC ANTIGEN 1.1 ng/mL (0.0-4.7); FOLLICLE STIMULATING HORMONE 8.1 mIU/mL (.); LUTEINIZING HORMONE 0.6 mIU/mL (.)
== END 2023-09-28 16:20 | disposition home or self-care (01) ==
LOC: JONCCHEMO 15:51 → J7W 15:51 → JONCCHEMO 16:20
PROVIDERS: ATTEND Internal Medicine Hematology & Oncology
DX: Z51.11 Encounter for antineoplastic chemotherapy (principal); C50.911 Malignant neoplasm of unspecified site of right female breast
CPT/HCPCS: 36415; 80053; 81003; 82378; 82670; 83001; 83002; 83735; 84703; 85025; 86300; 87086; 96402; J9202

== ENCOUNTER 2023-10-26 13:20 | Day surgery (SDC) | payer OTHER ==
[2023-10-26] MEDS: GOSERELIN ACETATE 3.6 MG IMPLANT SYRINGE SQ ONE (13:53)
[2023-10-26] MEDS: LIDOCAINE HCL 1%, 10 MG/ML (20ML VIAL) ID ONE (13:54)
[2023-10-26 14:26] LABS: BASO % 0.9 % (0-2.0); HEMATOCRIT 40.9 % (32.4-45.2); HEMOGLOBIN 13.7 GM/dL (10.7-15.3); LYMPH % 26.6 % (8-40); MCH 30.8 pg (25.7-33.7); MCHC 33.5 g/dl (32.0-36.0); MEAN CELL VOLUME 91.9 fl (80-96); MEAN PLT VOLUME 9.5 fl (7.5-11.1); MONO % 4.6 % (3.8-10.2); NEUT % 66.9 % (42.8-82.8); PLATELET COUNT 252 10^3/uL (134-434); RBC 4.45 M/mm3 (3.60-5.2); RDW 13.8 % (11.6-15.6); WHITE BLOOD COUNT 7.2 K/mm3 (4.0-10.0)
[2023-10-26 14:50] LABS: POTASSIUM 3.9 mmol/L (3.5-5.1)
[2023-10-26 14:52] LABS: ALBUMIN 3.6 g/dl (3.4-5.0); CALCIUM 9.1 mg/dL (8.5-10.1)
[2023-10-26 14:53] LABS: BLOOD UREA NITROGEN 13.5 mg/dL (7-18); MAGNESIUM 2.7 mg/dL (1.8-2.4)
[2023-10-26 14:56] LABS: CREATININE 0.6 mg/dL (0.55-1.3)
[2023-10-26 14:57] LABS: TOT PROT 7.4 g/dl (6.4-8.2)
[2023-10-26 15:01] LABS: BILIRUBIN,TOTAL 1.1 mg/dL (0.2-1)
[2023-10-26 16:36] VITALS: BP 132/80; PULSE 59; RESP 20; TEMP 98
[2023-10-27 08:10] LABS: CARCINOEMBRYONIC ANTIGEN 1.2 ng/mL (0.0-4.7); FOLLICLE STIMULATING HORMONE 8.4 mIU/mL (.); LUTEINIZING HORMONE 0.9 mIU/mL (.)
== END 2023-10-26 14:20 | disposition home or self-care (01) ==
LOC: JONCCHEMO 13:20 → J7W 13:21 → JONCCHEMO 14:20
PROVIDERS: ATTEND Internal Medicine Hematology & Oncology
DX: Z51.11 Encounter for antineoplastic chemotherapy (principal); C50.919 Malignant neoplasm of unspecified site of unspecified female breast
CPT/HCPCS: 36415; 80053; 82306; 82378; 82670; 83001; 83002; 83735; 84703; 85025; 86300; 96402; J9202

== ENCOUNTER 2023-11-23 15:52 | Day surgery (SDC) | payer OTHER ==
[2023-11-23] MEDS: LIDOCAINE HCL 1%, 10 MG/ML (20ML VIAL) ID ONE (16:21)
[2023-11-23] MEDS: GOSERELIN ACETATE 3.6 MG IMPLANT SYRINGE SQ ONE (16:22)
[2023-11-23 16:28] VITALS: BP 133/88; PULSE 71; RESP 18; TEMP 98.5
[2023-11-23 16:31] LABS: BASO % 0.6 % (0-2.0); EOS % 0.6 % (0-4.5); HEMATOCRIT 38.1 % (32.4-45.2); LYMPH % 19.2 % (8-40); MCH 30.7 pg (25.7-33.7); MCHC 34.2 g/dl (32.0-36.0); MEAN CELL VOLUME 89.9 fl (80-96); MEAN PLT VOLUME 8.7 fl (7.5-11.1); MONO % 5.5 % (3.8-10.2); NEUT % 74.1 % (42.8-82.8); PLATELET COUNT 293 10^3/uL (134-434); RBC 4.25 M/mm3 (3.60-5.2); RDW 13.4 % (11.6-15.6); WHITE BLOOD COUNT 9.2 K/mm3 (4.0-10.0)
[2023-11-23 16:59] LABS: POTASSIUM 3.7 mmol/L (3.5-5.1)
[2023-11-23 17:01] LABS: ALBUMIN 3.6 g/dl (3.4-5.0); CALCIUM 9.4 mg/dL (8.5-10.1)
[2023-11-23 17:02] LABS: BLOOD UREA NITROGEN 12.8 mg/dL (7-18); MAGNESIUM 2.5 mg/dL (1.8-2.4)
[2023-11-23 17:05] LABS: CREATININE 0.7 mg/dL (0.55-1.3)
[2023-11-23 17:06] LABS: BILIRUBIN,TOTAL 0.4 mg/dL (0.2-1)
[2023-11-24 08:12] LABS: FOLLICLE STIMULATING HORMONE 9.9 mIU/mL (.); LUTEINIZING HORMONE 0.3 mIU/mL (.)
== END 2023-11-23 16:39 | disposition home or self-care (01) ==
LOC: JONCCHEMO 15:52 → J7W 15:53 → JONCCHEMO 16:39
PROVIDERS: ATTEND Internal Medicine Hematology & Oncology
DX: Z51.11 Encounter for antineoplastic chemotherapy (principal); C50.911 Malignant neoplasm of unspecified site of right female breast
CPT/HCPCS: 36415; 80053; 82378; 82670; 83001; 83002; 83735; 84703; 85025; 86300; 96402; J9202

== ENCOUNTER 2023-12-22 16:33 | Day surgery (SDC) | payer OTHER ==
[2023-12-22 16:29] LABS: BASO % 0.9 % (0-2.0); EOS % 1.1 % (0-4.5); HEMATOCRIT 37.2 % (32.4-45.2); HEMOGLOBIN 12.5 GM/dL (10.7-15.3); LYMPH % 21.5 % (8-40); MCH 30.7 pg (25.7-33.7); MCHC 33.7 g/dl (32.0-36.0); MEAN CELL VOLUME 90.9 fl (80-96); MEAN PLT VOLUME 8.9 fl (7.5-11.1); MONO % 4.3 % (3.8-10.2); NEUT % 72.2 % (42.8-82.8); PLATELET COUNT 253 10^3/uL (134-434); RBC 4.09 M/mm3 (3.60-5.2); RDW 13.8 % (11.6-15.6); WHITE BLOOD COUNT 8.9 K/mm3 (4.0-10.0)
[~2023-12-22 16:33] MED LIST changes: -BUPIVACAINE HCL/PF 0.5% (5MG/ML) 10 ML VIAL IJ ONE; +LIDOCAINE HCL 1%, 10 MG/ML (20ML VIAL) ID ONE
[2023-12-22] MEDS: GOSERELIN ACETATE 3.6 MG IMPLANT SYRINGE SQ ONE (16:33)
[2023-12-22 16:43] LABS: CHLORIDE 109 mmol/L (98-107); POTASSIUM 3.8 mmol/L (3.5-5.1); SODIUM 138 mmol/L (136-145)
[2023-12-22 16:59] LABS: ALBUMIN 3.6 g/dl (3.4-5.0); ALK PHOS 105 U/L (45-117); ANION GAP -1 mmol/L (4-13); BILIRUBIN,TOTAL 0.3 mg/dL (0.2-1); BLOOD UREA NITROGEN 13.1 mg/dL (7-18); CO2 30 mmol/L (21-32); CREATININE 0.6 mg/dL (0.55-1.3); GLUCOSE,RANDOM 85 mg/dL (74-106); MAGNESIUM 2.2 mg/dL (1.8-2.4); SGOT/AST 12 U/L (15-37); SGPT/ALT 20 U/L (13-61); TOT PROT 7.1 g/dl (6.4-8.2)
[2023-12-22 17:16] VITALS: BP 138/87; PULSE 65; RESP 20; TEMP 98.3
[2023-12-24 22:06] LABS: FOLLICLE STIMULATING HORMONE 10.3 mIU/mL (.); LUTEINIZING HORMONE 0.3 mIU/mL (.)
== END 2023-12-22 16:55 | disposition home or self-care (01) ==
LOC: JONCCHEMO 16:33 → J7W 16:33 → JONCCHEMO 16:55
PROVIDERS: ATTEND Internal Medicine Hematology & Oncology
DX: Z51.11 Encounter for antineoplastic chemotherapy (principal); C50.911 Malignant neoplasm of unspecified site of right female breast
CPT/HCPCS: 36415; 80053; 82378; 82670; 83001; 83002; 83735; 84703; 85025; 86300; 96402; J9202

== ENCOUNTER 2024-01-19 16:20 | Day surgery (SDC) | payer OTHER ==
[2024-01-19] MEDS: GOSERELIN ACETATE 3.6 MG IMPLANT SYRINGE SQ ONE (16:29)
[2024-01-19] MEDS: LIDOCAINE HCL 1%, 10 MG/ML (20ML VIAL) ID ONE (16:31)
[2024-01-19 16:47] VITALS: BP 144/91; PULSE 79; RESP 18; TEMP 98.7
[2024-01-19 17:00] LABS: BASO % 0.5 % (0-2.0); EOS % 0.8 % (0-4.5); HEMATOCRIT 38.5 % (32.4-45.2); HEMOGLOBIN 12.8 GM/dL (10.7-15.3); LYMPH % 19.2 % (8-40); MCH 30.5 pg (25.7-33.7); MCHC 33.2 g/dl (32.0-36.0); MEAN CELL VOLUME 91.7 fl (80-96); MEAN PLT VOLUME 9.3 fl (7.5-11.1); MONO % 3.8 % (3.8-10.2); NEUT % 75.7 % (42.8-82.8); PLATELET COUNT 232 10^3/uL (134-434); WHITE BLOOD COUNT 8.9 K/mm3 (4.0-10.0)
[2024-01-19 17:13] LABS: POTASSIUM 3.7 mmol/L (3.5-5.1)
[2024-01-19 17:15] LABS: BLOOD UREA NITROGEN 11.7 mg/dL (7-18); CALCIUM 9.2 mg/dL (8.5-10.1)
[2024-01-19 17:16] LABS: ALBUMIN 3.4 g/dl (3.4-5.0); MAGNESIUM 2.4 mg/dL (1.8-2.4)
[2024-01-19 17:18] LABS: CREATININE 0.6 mg/dL (0.55-1.3)
[2024-01-19 17:20] LABS: BILIRUBIN,TOTAL 0.4 mg/dL (0.2-1); TOT PROT 6.9 g/dl (6.4-8.2)
[2024-01-21 08:13] LABS: CARCINOEMBRYONIC ANTIGEN 1.1 ng/mL (0.0-4.7); FOLLICLE STIMULATING HORMONE 11.7 mIU/mL (.); LUTEINIZING HORMONE < 0.3 mIU/mL (.)
== END 2024-01-19 17:00 | disposition home or self-care (01) ==
LOC: J7W 16:20 → JONCCHEMO 16:20
PROVIDERS: ATTEND Internal Medicine Hematology & Oncology
DX: Z51.11 Encounter for antineoplastic chemotherapy (principal); C50.911 Malignant neoplasm of unspecified site of right female breast
CPT/HCPCS: 36415; 80053; 82378; 82550; 82670; 83001; 83002; 83036; 83735; 84443; 84703; 85025; 86300; 96402; J9202

== ENCOUNTER 2024-01-21 09:18 | Emergency (ER) | payer OTHER ==
[2024-01-21 09:25] VITALS: BP 130/86; PULSE 69; RESP 18; TEMP 97.8; BMI 32.8
[2024-01-21] MEDS ORDERED: ACETAMINOPHEN INJECTION 100 ML IVPB ONE (11:10)
[2024-01-21] MEDS ORDERED: FAMOTIDINE 20 MG/50 ML IVPB 20 MG/50 ML MG IVPB ONE (11:10)
[2024-01-21] MEDS ORDERED: METOCLOPRAMIDE HCL INJECTION 10 MG/2 ML VIAL ONE (11:10)
[2024-01-21 11:12] LABS: BASO % 0.4 % (0-2.0); EOS % 0.5 % (0-4.5); HEMOGLOBIN 13.3 GM/dL (10.7-15.3); MCH 30.5 pg (25.7-33.7); MCHC 34.2 g/dl (32.0-36.0); MEAN CELL VOLUME 89.2 fl (80-96); MEAN PLT VOLUME 8.7 fl (7.5-11.1); MONO % 4.7 % (3.8-10.2); NEUT % 83.4 % (42.8-82.8); PLATELET COUNT 246 10^3/uL (134-434); RBC 4.37 M/mm3 (3.60-5.2); RDW 14.2 % (11.6-15.6)
[2024-01-21 11:16] LABS: EPI CELLS 2 /uL (0-25.1); HYALINE CASTS 0 /uL (0-3.1); PH,URINE 6.5 (5.0-8.0); URINE APPEARANCE CLEAR; URINE BACTERIA 8 /uL (0-1359); URINE BILIRUBIN NEGATIVE (NEGATIVE); URINE COLOR YELLOW; URINE GLUCOSE (UA) NEGATIVE (NEGATIVE); URINE KETONE NEGATIVE (NEGATIVE); URINE LEUK ESTERASE NEGATIVE (NEGATIVE); URINE NITRITE NEGATIVE (NEGATIVE); URINE PROTEIN NEGATIVE (NEGATIVE); URINE RBC 138 /uL (0-23.9); URINE UROBILINOGEN 0.2 mg/dL (0.2-1.0); URINE WBC 4 /uL (0-25.8)
[2024-01-21] MEDS: ACETAMINOPHEN 1000 MG/100 ML BAG IVPB ONE (11:18)
[2024-01-21] MEDS: FAMOTIDINE 20 MG/50 ML IVPB 20 MG/50 ML MG IVPB ONE (11:18)
[2024-01-21] MEDS: METOCLOPRAMIDE HCL INJECTION 10 MG/2 ML VIAL IVPB ONE (11:18)
[2024-01-21] MEDS: SODIUM CHLORIDE 0.9% 500 ML INFUS.BAG IV ONE (11:18)
[2024-01-21 11:29] LABS: POTASSIUM 3.6 mmol/L (3.5-5.1)
[2024-01-21 11:33] LABS: ALBUMIN 3.4 g/dl (3.4-5.0); BLOOD UREA NITROGEN 12.4 mg/dL (7-18)
[2024-01-21 11:36] LABS: CREATININE 0.6 mg/dL (0.55-1.3)
[2024-01-21 11:39] LABS: BILIRUBIN,TOTAL 0.6 mg/dL (0.2-1)
[2024-01-21] MEDS ORDERED: MECLIZINE HCL 25 MG TABLET (FP) ONE (13:31)
[2024-01-21] MEDS ORDERED: ONDANSETRON 4 MG/2 ML VIAL ONE (13:31)
[2024-01-21] MEDS ORDERED: KETOROLAC TROMETHAMINE 30 MG/1 ML VIAL ONE (13:31)
[2024-01-21] MEDS: ONDANSETRON 4 MG/2 ML VIAL IVPUSH ONE (13:36)
[2024-01-21] MEDS: KETOROLAC TROMETHAMINE 30 MG/1 ML VIAL IVPUSH ONE (13:36)
[2024-01-21] MEDS: MECLIZINE HCL 25 MG TABLET (FP) PO ONE (13:36)
== END 2024-01-21 15:15 | disposition home or self-care (01) ==
LOC: JER 09:18
PROC: 3E033GC Introduction of Other Therapeutic Substance into Peripheral Vein, Percutaneous Approach (ICD-10-PCS; principal; 2024-01-21)
PROC: 3E033GC Introduction of Other Therapeutic Substance into Peripheral Vein, Percutaneous Approach (ICD-10-PCS; 2024-01-21)
PROC: 3E033GC Introduction of Other Therapeutic Substance into Peripheral Vein, Percutaneous Approach (ICD-10-PCS; 2024-01-21)
PROC: 3E033NZ Introduction of Analgesics, Hypnotics, Sedatives into Peripheral Vein, Percutaneous Approach (ICD-10-PCS; 2024-01-21)
PROC: 3E0333Z Introduction of Anti-inflammatory into Peripheral Vein, Percutaneous Approach (ICD-10-PCS; 2024-01-21)
DX: R51.9 Headache, unspecified (principal); R10.13 Epigastric pain; R11.0 Nausea; R42 Dizziness and giddiness; Z20.822 Contact with and (suspected) exposure to COVID-19
CPT/HCPCS: 0241U-QW; 36415; 70450-TC; 71046-TC-FY; 76705-TC; 80053; 81003; 83690; 84484; 85025; 87086; 93005; 93010; 99285-25; J0131

== ENCOUNTER 2024-02-16 16:20 | Day surgery (SDC) | payer OTHER ==
[2024-02-16] MEDS: LIDOCAINE HCL 1%, 10 MG/ML (20ML VIAL) ID ONE (16:36)
[2024-02-16] MEDS: GOSERELIN ACETATE 3.6 MG IMPLANT SYRINGE SQ ONE (16:36)
[2024-02-16 16:43] LABS: BASO % 0.5 % (0-2.0); EOS % 0.9 % (0-4.5); HEMATOCRIT 37.8 % (32.4-45.2); HEMOGLOBIN 12.8 GM/dL (10.7-15.3); LYMPH % 20.3 % (8-40); MCH 30.2 pg (25.7-33.7); MCHC 33.9 g/dl (32.0-36.0); MEAN CELL VOLUME 89.1 fl (80-96); MEAN PLT VOLUME 8.9 fl (7.5-11.1); MONO % 5.9 % (3.8-10.2); NEUT % 72.4 % (42.8-82.8); PLATELET COUNT 252 10^3/uL (134-434); RBC 4.24 M/mm3 (3.60-5.2); RDW 13.7 % (11.6-15.6); WHITE BLOOD COUNT 9.1 K/mm3 (4.0-10.0)
[2024-02-16 17:03] VITALS: BP 121/75; PULSE 88; RESP 16; TEMP 98.5
[2024-02-16 17:03] LABS: POTASSIUM 3.7 mmol/L (3.5-5.1)
[2024-02-16 17:05] LABS: BLOOD UREA NITROGEN 12.9 mg/dL (7-18)
[2024-02-16 17:06] LABS: ALBUMIN 3.5 g/dl (3.4-5.0); MAGNESIUM 2.5 mg/dL (1.8-2.4)
[2024-02-16 17:09] LABS: CREATININE 0.7 mg/dL (0.55-1.3)
[2024-02-16 17:10] LABS: BILIRUBIN,TOTAL 0.3 mg/dL (0.2-1)
[2024-02-18 08:10] LABS: FOLLICLE STIMULATING HORMONE 10.9 mIU/mL (.); LUTEINIZING HORMONE < 0.3 mIU/mL (.)
== END 2024-02-16 17:10 | disposition home or self-care (01) ==
LOC: J7W 16:20 → JONCCHEMO 16:20
PROVIDERS: ATTEND Internal Medicine Hematology & Oncology
DX: Z51.11 Encounter for antineoplastic chemotherapy (principal); C50.911 Malignant neoplasm of unspecified site of right female breast
CPT/HCPCS: 36415; 80053; 82378; 82670; 82977; 83001; 83002; 83735; 84703; 85025; 86300; 86335; 96402; J9202

== ENCOUNTER 2024-11-27 05:21 | Day surgery (SDC) | payer OTHER ==
[2024-11-23 17:11] VITALS: BMI 33.6
[2024-11-27] MEDS ORDERED: KETOROLAC TROMETHAMINE 30 MG/1 ML VIAL ONE (08:50)
[2024-11-27] MEDS ORDERED: ONDANSETRON 4 MG/2 ML VIAL ONE (08:50)
[2024-11-27] MEDS ORDERED: MIDAZOLAM HCL 2 MG/2 ML SINGLE DOSE VIAL ONE (08:50)
[2024-11-27 10:35] VITALS: BP 117/75; PULSE 55; RESP 16; TEMP 97.8
[2024-11-27] MEDS ORDERED: ACETAMINOPHEN 500 MG TABLET (FP) ONE (10:50)
[2024-11-27] MEDS: ACETAMINOPHEN 500 MG TABLET (FP) PO ONE (10:55)
== END 2024-11-27 12:22 | disposition home or self-care (01) ==
LOC: JASU-SURG 05:21
PROVIDERS: ATTEND Urology
PROC: 0TF4XZZ Fragmentation in Left Kidney Pelvis, External Approach (ICD-10-PCS; principal; 2024-11-27 09:30)
DX: N20.0 Calculus of kidney (principal)